=== PATIENT | female | born 1995 | race Caucasian/White ===

== ENCOUNTER 2016-09-17 14:39 | Inpatient (IN) | payer BC ==
[2016-09-17] MEDS ORDERED: NS 1,000 ML IV ONE ×3 (15:25→18:10)
[2016-09-17 15:44] LABS: ANION GAP 12 mEq/L (8-16); CALCIUM 8.7 mg/dL (8.5-10.4); CARBON DIOXIDE 22 mEq/l (22-31); CHLORIDE 102 mEq/L (97-110); CREATININE 2.2 mg/dL (0.6-1.0); GLOMERULAR FILTRATION RATE 28; GLUCOSE 129 mg/dL (70-100); POTASSIUM 3.8 mEq/L (3.5-5.2); SODIUM 136 mEq/L (134-144)
[2016-09-17 16:01] LABS: BHCG-QUALITATIVE NEGATIVE; MONO TEST NEGATIVE (NEGATIVE)
[2016-09-17 16:05] LABS: ALBUMIN 3.5 g/dL (3.5-5.0); BILIRUBIN-CONJUGATED 0.5 mg/dL (0.0-0.5); BILIRUBIN-UNCONJUGATED 0.5 mg/dL (0.0-1.1); TOTAL PROTEIN 6.6 g/dL (6.3-8.2)
[2016-09-17 16:07] LABS: ADD MORPH? NO; FRAGMENT RBC FLAG 0 (0-99); HEMATOCRIT 44.5 % (38.0-47.0); LIPEMIA HEMOLYSIS FLAG 80 (0-99); MEAN CELL HEMOGLOBIN CONCENTR. 33.7 g/dL (32.4-36.7); MEAN PLATELET VOLUME 10.2 fL (8.7-11.7); PLATELET CLUMPS FLAG 10 (0-99); PLATELET COUNT 93 10^3/uL (150-400); RED CELL DISTRIBUTION WIDTH 12.3 % (11.5-15.2)
[2016-09-17 16:12] LABS: ADD DIFF? YES; ADD SCAN? NO; ATYPICAL LYMPHOCYTE FLAG 100 (0-99); LEFT SHIFT FLG 300 (0-99)
--- NOTE | 2016-09-17 16:27 | EDPHY ---
H & P Stated Complaint: Intermittent fever,generalized malaise x 4 days. Sent from [facility] for eval Source: Patient Exam Limitations: No limitations - Personal History LMP (Females 10-55): 1-7 Days Ago Current Tetanus Diphtheria and Acellular Pertussis (TDAP): Yes - Medical/Surgical History Other PMH: healthy HPI/ROS: CHIEF COMPLAINT: Flu-like symptoms HISTORY OF PRESENT ILLNESS: Patient complains of several days of fever and chills. This was followed with subsequent headache, malaise, myalgias and fatigue. This was sudden onset. Constant duration. [id number] symptoms. No alleviating factors until receiving IV fluid here prior to my examination. She has no chest pain. The headache that she has had has been intermittent. It has been mild. It is currently not present during examination. She has never had any neck pain or stiffness. She has never had any chest pain. Does have occasional cough. Some nausea but no vomiting. No changes in her bowel movements. No urinary complaints. No other associated complaints or modifying factors. REVIEW OF SYSTEMS: Ten systems reviewed and are negative unless otherwise noted in the HPI PERTINENT MEDICAL HISTORY: None EXAMINATION General Appearance: Alert, no distress Head: normocephalic, atraumatic Eyes: Pupils equal and round, no conjunctival pallor or injection ENT, Mouth: Mucous membranes dry. Uvula midline. No erythema or edema. Airway widely patent. Neck: Normal inspection, supple, non-tender painless range of motion all planes. No rigidity or meningismus. Respiratory: Lungs are clear to auscultation. No wheezing, rhonchi or crackles. Cardiovascular: Regular rate and rhythm. No murmur. Pulses intact distally. Gastrointestinal: Abdomen is soft and nontender. No hepatosplenomegaly. Bowel sounds present in all quadrants Back: non-tender, no bony abnormalities Neurological: GCS 15. A&O, nonfocal, normal gait. Strength symmetric. Skin: Warm and dry, no rash. No petechiae or purpura. Extremities: Nontender, no pedal edema Psychiatric: Mood and affect normal DIFFERENTIAL DIAGNOSES: Including but not limited to acute dehydration, influenza, infectious mononucleosis, cytomegalovirus, viral illness, acute kidney injury, meningitis MDM: 4:20 p.m. Flu-like symptoms with creatinine of 2.2, but her BUN to creatinine ratio was only 7.7. Her headache is not present. She has not had any neck pain or stiffness, nor does she have any meningismus on examination. Chemistry is the only laboratory this returned thus far. Will continue IV fluid resuscitation and monitor the patient. 5:00 p.m. Patient does have leukocytosis with 11% bandemia. I have ordered blood cultures and lactic acid after discussing with Dr. Ford. Also ordered a chest x-ray to rule out pneumonia. She is receiving continue IV fluid resuscitation, we will recheck her creatinine following this. 5:30 p.m. I have re-evaluated the patient. Vital signs remain mildly hypotensive without tachycardia at this time. Blood cultures have been drawn and lactic acid is pending. She is currently getting her chest x-ray at this time 5:45 p.m. Notified by radiologist Dr. Church that there is a right middle lobe pneumonia on chest x-ray. This with her initial tachycardia, lactic acid of 3.0, leukocytosis with bandemia classifies her as severe sepsis but not septic shock at this time. We will start treatment with Rocephin and Zithromax, repeat the lactic acid, continue IV fluid resuscitation and proceed with admission to the hospital. Urinalysis is pending at this time. 5:50 p.m. I have discussed the case with hospitalist Dr. Teena Phillip. She will admit the patient. She was notified that the patient does meet criteria for severe sepsis. She is notified that we are rechecking lactic acid following the current 3rd L of IV fluid. She is comfortable with our plan. SUPERVISION: Patient was evaluated in conjunction with the supervising physician. Please see their note for details. (Robson Vasquez) Constitutional: Initial Vital Signs Temperature (C) 97.7 F 09/17/16 14:45 Heart Rate 122 H 09/17/16 14:45 Respiratory Rate 18 09/17/16 14:45 Blood Pressure 71/38 L 09/17/16 14:45 O2 Sat (%) 97 09/17/16 14:45 O2 Delivery Mode Nasal Cannula O2 (L/minute) 2 Allergies/Adverse Reactions: Penicillins Allergy (Mild, Verified 09/17/16 14:50) Rash Home Medications: Medication Instructions Recorded Norethindrone 0.35 mg PO DAILY 09/17/16 Medical Decision Making ED Course/Re-evaluation: The patient was evaluated and managed by the physician's corporate law assistant. My cosignature indicates that I reviewed the chart and I agree with the findings and plan of care as documented. I am the secondary supervising physician. I personally went and evaluated the patient. I discussed the plan case with SINDI. On recheck the patient stated that she was feeling better. Her vital signs improved. Patient's repeat creatinine improved. 1835: I rechecked the patient. She was stable. (Emily Ford) - Data Points Laboratory Results: Laboratory Results 09/18/16 06:45 09/18/16 04:15 09/18/16 04:15 HIV 1&2 Antibody NEGATIVE (NEGATIVE) Microbiology Results: MICROBIOLOGY 09/17/16 18:03 Blood Blood Culture - Preliminary 09/17/16 17:19 Blood Blood Culture - Preliminary 09/17/16 17:50 Urine,Clean Catch Urine Culture - Preliminary Staphylococcus Aureus Two [place] Types Medications Given: Discontinued Medications Calcium Carbonate (Oyster Shell Calcium) 500 mg PO BID SUKUMAR Stop: 09/19/16 00:05 Last Admin: 09/18/16 21:21 Dose: 500 mg Hydrocortisone (Solucortef) 100 mg IVP ONCE ONE Stop: 09/18/16 05:30 Last Admin: 09/18/16 06:29 Dose: 100 mg Sodium Chloride (Ns) 1,000 mls @ 0 mls/hr IV EDNOW ONE PRN Reason: Wide Open Stop: 09/17/16 15:26 Last Admin: 09/17/16 15:27 Dose: 1,000 mls Sodium Chloride (Ns) 1,000 mls @ 0 mls/hr IV ONCE ONE PRN Reason: Wide Open Stop: 09/17/16 15:50 Last Admin: 09/17/16 15:55 Dose: 1,000 mls Azithromycin 500 mg/ Dextrose 255 mls @ 255 mls/hr IV EDNOW ONE PRN Reason: Protocol Stop: 09/17/16 18:41 Last Admin: 09/17/16 18:36 Dose: 255 mls Ceftriaxone Sodium/Dextrose (Rocephin 1 Gm (Premix)) 50 mls @ 100 mls/hr IV EDNOW ONE PRN Reason: Protocol Stop: 09/17/16 18:11 Last Admin: 09/17/16 18:00 Dose: 50 mls Sodium Chloride (Ns) 1,000 mls @ 0 mls/hr IV ONCE ONE PRN Reason: Wide Open Stop: 09/17/16 18:11 Last Admin: 09/17/16 17:00 Dose: 1,000 mls Sodium Chloride (Ns) 1,000 mls @ 100 mls/hr IV CONT SUKUMAR Stop: 03/16/17 18:59 Last Admin: 09/18/16 07:23 Dose: 1,000 mls Sodium Chloride (Ns) 1,000 mls @ 0 mls/hr IV ONCE ONE PRN Reason: Wide Open Stop: 09/17/16 23:31 Last Admin: 09/17/16 23:59 Dose: 1,000 mls Sodium Chloride (Ns) 1,000 mls @ 3,000 mls/hr IV ONCE ONE Stop: 09/18/16 00:59 Last Admin: 09/18/16 01:27 Dose: 1,000 mls Dopamine HCl/Dextrose (Dopamine 1600 Mcg/Ml (Premix)) 250 mls @ 9.781 mls/hr IV CONT SUKUMAR PRN Reason: 5 MCG/KG/MIN Stop: 03/17/17 01:59 Last Admin: 09/18/16 03:00 Dose: 250 mls Sodium Chloride (Ns) 1,000 mls @ 3,000 mls/hr IV ONCE ONE Stop: 09/18/16 02:46 Last Admin: 09/18/16 02:44 Dose: 1,000 mls Albumin Human (Alburx 5) 500 mls @ 0 mls/hr IV ONCE ONE PRN Reason: As Directed Stop: 09/18/16 04:28 Last Admin: 09/18/16 04:43 Dose: 500 mls Phenylephrine HCl 50 mg/ (Dextrose) 250 mls @ 0 mls/hr IV CONT SUKUMAR; Titrate PRN Reason: Protocol Stop: 03/17/17 04:29 Last Admin: 09/18/16 05:15 Dose: 250 mls Calcium Gluconate (Calcium Gluconate 1 Gm (Premix)) 50 mls @ 100 mls/hr IV ONCE ONE Stop: 09/18/16 09:46 Last Admin: 09/18/16 13:38 Dose: Not Given Magnesium Sulfate (Magnesium Sulf 2 Gm (Premix)) 50 mls @ 50 mls/hr IV ONCE ONE Stop: 09/18/16 10:16 Last Admin: 09/18/16 12:42 Dose: 50 mls Albumin Human (Alburx 5) 500 mls @ 0 mls/hr IV ONCE ONE PRN Reason: As Directed Stop: 09/18/16 10:20 Last Admin: 09/18/16 14:30 Dose: 500 mls Magnesium Sulfate/Dextrose (Magnesium Sulf 1 Gm (Premix)) 100 mls @ 100 mls/hr IV ONCE ONE Stop: 09/19/16 09:20 Last Admin: 09/19/16 09:10 Dose: 100 mls Magnesium Oxide (Magnesium Oxide) 400 mg PO ONCE ONE Stop: 09/18/16 13:43 Last Admin: 09/18/16 14:30 Dose: 400 mg Miscellaneous Medication (Norethindrone [Norethindrone]) 0.35 mg PO DAILY SUKUMAR Stop: 03/17/17 08:59 Last Admin: 09/18/16 10:54 Dose: Not Given Potassium Chloride (Klor-Con) 10 - 40 meq PO ONCE ONE PRN Reason: Protocol Stop: 09/18/16 08:02 Last Admin: 09/18/16 10:26 Dose: 10 meq Potassium Chloride (Klor-Con) 10 - 40 meq PO ONCE ONE PRN Reason: Protocol Stop: 09/18/16 23:27 Last Admin: 09/19/16 00:29 Dose: 20 meq Potassium Chloride (Klor-Con) 10 - 40 meq PO ONCE ONE PRN Reason: Protocol Stop: 09/19/16 08:21 Last Admin: 09/19/16 09:12 Dose: 20 meq Departure - Departure Dis[facility]: [facility] In[facility] Acute Clinical Impression: Severe sepsis, Community acquired pneumonia, Lactic acidosis, Thrombocytopenia Urinary tract infection Qualifiers: Urinary tract infection type: acute cystitis Hematuria presence: with hematuria Qualified Code(s): N30.01 - Acute cystitis with hematuria Leukocytosis Qualifiers: Leukocytosis type: bandemia Qualified Code(s): D72.825 - Bandemia Condition: Good
[2016-09-17 16:38] LABS: TOXIC VACUOLIZATION PRESENT
[2016-09-17 16:39] LABS: PLATELET ESTIMATE DECREASED (ADEQ)
[2016-09-17] MEDS ORDERED: AZITHROMYCIN IV 500 MG in D5W 250 ML IV ONE (17:42)
[2016-09-17 18:05] LABS: COLOR YELLOW; LEUKOCYTE ESTERASE,URINE 3+ (NEGATIVE); NITRITE,URINE NEGATIVE (NEGATIVE)
[2016-09-17 18:17] LABS: BACTERIA TRACE /hpf (NONE SEEN); MUCUS TRACE /lpf (NONE-1+); WBC,URINE 15-25 /hpf (0-3)
[2016-09-17 18:30] LABS: LACGHOST ORDER
[2016-09-17] MEDS ORDERED: ONDANSETRON 4 MG/2 ML VIAL ONE (18:42)
[2016-09-17] MEDS: ONDANSETRON 4 MG/2 ML VIAL IVP PRN (19:06)
--- NOTE | 2016-09-17 19:43 | GHP ---
[f rep st] HISTORY AND PHYSICAL DATE OF ADMISSION: 09/17/2016 CHIEF COMPLAINT: Fever and dizziness. HISTORY OF PRESENT ILLNESS: The patient is a 21-year-old female, who has been sick for the last 4 d ays. It started with chills and all-over body aches with headache. She has had fever and chills. Last night, her symptoms became very severe. She tried to get up this morning and she was extremely dizzy. She says there has been no cough or any respiratory symptoms. She feels like the lymph nod es are swollen in her neck, but she denies any pharyngitis or pain with swallowing. She has had joe e nausea and vomiting. She denies any sick contacts. No recent exotic travel. Her last travel was studying abroad in [place], returning home last April. PAST MEDICAL HISTORY: Negative. MEDICATIONS: None. ALLERGIES: PENICILLIN. SOCIAL HISTORY: No smoking. No drugs. She binge drinks on weekends. She is a [employer] student. She li ves in an apartment with roommates. Her parents live in [place], [place]. REVIEW OF SYSTEMS: Complete review of systems obtained. Review of systems is negative regarding co nstitutional, HEENT, GI, pulmonary, vascular, , hematology, skin, musculoskeletal, endocrine and p sych except for positives and negatives as in HPI. FAMILY HISTORY: Reviewed. PHYSICAL EXAMINATION: VITAL SIGNS: Temperature is 36.6, pulse 122. Blood pressure on presentation 71/38. Status post resuscitation in the emergency room is 105/51. Saturating % on room air. EYES: Normal conjunctivae. Pupils react to light. ENT: Normal ears and nose. Hearing inta ct. Normal lips and teeth. Oropharynx moist. NECK: Trachea midline. No thyromegaly. CHEST: No rmal effort. LUNGS: Clear to auscultation bilaterally. CARDIOVASCULAR: Regular rate and rhythm. No murmur. No lower extremity edema. ABDOMEN: Soft, nontender. No hepatosplenomegaly. SKIN: W arm, dry, intact. No rash. MUSCULOSKELETAL: No cyanosis or clubbing. Strength 5/5 upper and lowe r extremities. NEUROLOGIC: Cranial nerves intact. Normal sensation to light touch. PSYCH: Alert and oriented x3. Normal affect. Normal judgment. Normal memory. LABORATORY DATA: White count 14.22 with 78% bands, hematocrit 44.5, platelets 93. Sodium 136, pota ssium 3.8, chloride 102, bicarb 22, BUN 17, creatinine 2.2, glucose 129. Lactate is 3.0. AST is 64 . Influenza negative. Respiratory PCR negative. Beta HCG negative. Chest x-ray shows right middl e lobe pneumonia. EMERGENCY ROOM COURSE: This case was discussed with Robson Vasquez, emergency room PA. They have adm inistered ceftriaxone and azithromycin. Her blood pressure and lactate have improved after IV fluid in the ER. ASSESSMENT/PLAN: 1. Right middle lobe pneumonia. There definitely seems to be a viral element to this but perhaps s he has a secondary bacterial infection. We will continue ceftriaxone and azithromycin. Could also consider treatment for aspiration pneumonia given her history of binge drinking behavior. We will c heck an HIV. 2. Severe sepsis. She will be started on the sepsis protocol. We will continue IV fluid and check serial lactates. 3. Acute renal failure. This is due to sepsis and hypotension. We will recheck status post resusc itation. 4. Hypotension. This has resolved with IV fluid. She looks clinically nontoxic. I do not anticip ate she will need pressors. 5. Thrombocytopenia. I suspect this is due to sepsis. This will be followed. CODE STATUS: Full. ADMISSION STATUS: We will admit to observation. Depending on progress, she may be able go home oralia orrow if she has a rapid turnaround. DVT PROPHYLAXIS: She is low risk. We will hold off on pharmacologic prophylaxis at this time. /[id number]/MODL
[2016-09-17] MEDS: NS 1,000 ML IV SCH (19:53)
[2016-09-17] MEDS: ACETAMINOPHEN 325 MG TAB PO PRN (21:45)
[2016-09-17] MEDS: oxyCODONE IR 5 MG TAB PO PRN (22:43)
[2016-09-17] MEDS ORDERED: NS BOLUS 1000 ML (Wide open) IV ONE (23:30)
[2016-09-18] MEDS ORDERED: NS 1,000 ML IV ONE ×2 (00:40→02:27)
[2016-09-18] MEDS ORDERED: IOPAMIDOL (ISOVUE 370) 100 ML BTL IV ONE ×2 (03:24)
[2016-09-18] MEDS: ONDANSETRON 4 MG/2 ML VIAL IVP PRN ×2 (04:00→07:21)
[2016-09-18 04:27] LABS: ADD MORPH? NO; ADD SCAN? YES; FRAGMENT RBC FLAG 0 (0-99); HEMATOCRIT 38.5 % (38.0-47.0); LIPEMIA HEMOLYSIS FLAG 90 (0-99); MEAN CELL HEMOGLOBIN 30.7 pg (27.9-34.1); MEAN CELL HEMOGLOBIN CONCENTR. 33.8 g/dL (32.4-36.7); MEAN CELL VOLUME 90.8 fL (81.5-99.8); MEAN PLATELET VOLUME 10.6 fL (8.7-11.7); PLATELET CLUMPS FLAG 10 (0-99); PLATELET COUNT 70 10^3/uL (150-400); RED BLOOD CELL COUNT 4.24 10^6/uL (4.18-5.33); RED CELL DISTRIBUTION WIDTH 12.7 % (11.5-15.2)
[2016-09-18] MEDS ORDERED: ALBUMIN 5% 500 ML IV ONE ×2 (04:27→10:19)
[2016-09-18] MEDS ORDERED: PHENYLEPHRINE HCL 50 MG in D5W 250 ML IV SCH (04:30)
[2016-09-18 04:36] LABS: ATYPICAL LYMPHOCYTE FLAG 170 (0-99); LEFT SHIFT FLG 250 (0-99)
[2016-09-18 04:44] LABS: ALANINE AMINOTRANSFERASE 47 IU/L (9-52); ALBUMIN 2.5 g/dL (3.5-5.0); ALKALINE PHOSPHATASE 56 IU/L (38-126); ANION GAP 6 mEq/L (8-16); ASPARTATE AMINOTRANSFERASE 47 IU/L (14-46); BILIRUBIN-CONJUGATED 0.7 mg/dL (0.0-0.5); BILIRUBIN-UNCONJUGATED 0.3 mg/dL (0.0-1.1); CALCIUM 6.3 mg/dL (8.5-10.4); CARBON DIOXIDE 20 mEq/l (22-31); CHLORIDE 111 mEq/L (97-110); CREATININE 1.1 mg/dL (0.6-1.0); GLOMERULAR FILTRATION RATE > 60; GLUCOSE 91 mg/dL (70-100); POTASSIUM 3.8 mEq/L (3.5-5.2); SODIUM 137 mEq/L (134-144); TOTAL PROTEIN 4.7 g/dL (6.3-8.2)
[2016-09-18 04:55] LABS: TROPONIN I 0.021 ng/mL (0-0.034)
--- NOTE | 2016-09-18 05:03 | HOSPPROG ---
Hospitalist Progress Note Assessment/Plan: CROSS COVER EVENT NOTE RN paged at approximately 23:30 regarding abnormal VS for the patient: BP 81/34 , HR 95, with patient still mentating well, largely without complaint. At this time, 1L NS was ordered and given. Prior to this, patient had received about 4 L NS boluses, her admission lactic acid had downtrended from 3 to 2. Patient's BP did not respond to the 1L NS bolus, actually decreased to the 70/30 range, so another 1L bolus was given. Over the following hour, BP continued to decrease , now 60/30s, so STAT was called by RN. On exam during stat team: Gen: NAD, mentating CV: tachycardic Resp: cta b/l, no rhonchi Abd: soft, nontender Ext; peripheral mottling, faint/weak radial pulses bilaterally; no edema Neuro: mentating at baseline; no focal deficits Labs: LA 3->2->1.4 D-dimer: 5 CT angio was then ordered to rule out acute pulmonary embolism. CT chest did not reveal PE and was also negative for obvious pneumonia/infiltrate. Impress/plan: Patient is a 21 year old female with no significant pmh who presented to the ED with complaint of 4 days of generalized malaise, upper respiratory symptoms. ED evaluation was concerning for sepsis due to RML pneumonia vs UTI. She was initiated on IVF resuscitation, IV antibiotics. However, over the course of the evening, patient remains hypotensive, concerning for septic shock despite adequate IVF resuscitation (7L total). CT chest has ruled out PE, but also does not reveal evidence of pneumonia. Source now appears to be urinary. - transfer to ICU - initiate peripheral dopamine, if MAP does not improve place central access and start levophed - trend lactic acid - check Renal/bladder US to r/o obstructive pyelonephritis - f/u blood and urine culture - check TTE to rule out cardiac component Laura Roland DO Objective: Vital Signs Temp Pulse Resp BP Pulse Ox 37.1 C 93 17 83/37 L 97 09/18/16 02:45 09/18/16 03:00 09/18/16 03:00 09/18/16 03:00 09/18/16 03:00 09/16/16 09/17/16 09/18/16 05:59 05:59 05:59 Intake Total 3300 Balance 3300 ICD10 Worksheet Patient Problems: Problems Problem Status Onset Severe sepsis Acute Community acquired pneumonia Acute Lactic acidosis Acute Thrombocytopenia Acute Urinary tract infection Acute Leukocytosis Acute
[2016-09-18] MEDS ORDERED: ALTEPLASE 2 MG VIAL IVP PRN (05:04)
[2016-09-18] MEDS ORDERED: PROTOCOL POTASSIUM 1 DOSE MISC PRN (05:09)
[2016-09-18] MEDS ORDERED: PROTOCOL MAGNESIUM 1 DOSE IV PRN (05:09)
[2016-09-18] MEDS ORDERED: PROTOCOL CALCIUM 1 DOSE IV PRN (05:09)
[2016-09-18 05:24] LABS: ADD DIFF? YES; SCAN POSITIVE
[2016-09-18 05:26] LABS: INR 2.3 (0.83-1.16); PROTIME(PATIENT) 25.5 SEC (12.0-15.0)
[2016-09-18 05:27] LABS: APTT 47.2 SEC (23.0-38.0)
[2016-09-18 05:29] LABS: ECHINOCYTES 1+; PLATELET ESTIMATE DECREASED (ADEQ); TOXIC GRANULATION PRESENT; TOXIC VACUOLIZATION PRESENT
[2016-09-18] MEDS ORDERED: HYDROCORTISONE 100 MG/2 ML VIAL IVP ONE (05:29)
[2016-09-18 06:57] LABS: PLATELET COUNT 73 10^3/uL (150-400)
[2016-09-18 07:05] LABS: INR 1.99 (0.83-1.16); PROTIME(PATIENT) 22.7 SEC (12.0-15.0)
[2016-09-18 07:06] LABS: APTT 39.5 SEC (23.0-38.0)
[2016-09-18] MEDS: NS 1,000 ML IV SCH (07:23)
[2016-09-18 07:26] LABS: FIBRINOGEN 347 mg/dL (214-456)
[2016-09-18] MEDS ORDERED: POTASSIUM CL 10 MEQ TAB PO ONE ×2 (08:01→23:26)
[2016-09-18 08:07] LABS: IONIZED CALCIUM 0.96 MMOL/L (1.12-1.30)
[2016-09-18] MEDS ORDERED: CALCIUM GLUCONATE 50 ML IV ONE (09:17)
[2016-09-18] MEDS ORDERED: MAGNESIUM SULF 2 GM/WATER 50 ML IV ONE (09:17)
--- NOTE | 2016-09-18 10:22 | HOSPPROG ---
Hospitalist Progress Note Assessment/Plan: DIAGNOSES: # ACUTE SEPTIC SHOCK WITH ORGAN FAILURE # URINARY TRACT INFECTION # ACUTE KIDNEY INJURY # PROBABLE DIC DUE TO ABOVE Overall she Appears to be responding well, and sepsis improving though she remains on pressor therapy. I am optimistic she will continue to improve fairly quickly but she will need ongoing intensive care unit care. PLANS: continue fluid resuscitation and antibiotics Follow cultures closely Follow hemodynamics closely, continue resuscitation as indicated, hopefully can continue to wean pressors fairly soon I have interviewed and examined the patient together with Dr. Silviano Spring and we reviewed her case in detail Patient also seen on multidisciplinary rounds today SUBJECTIVE: no flank, abdominal, or bladder discomfort No cough shortness of breath chest discomfort or other respiratory symptoms No focal pain or discomfort OBJECTIVE Vitals reviewed: blood pressures have been good range though she started still this morning on high dose norepinephrine and dopamine. We have now been able to turn off the dopamine and her pressures have remained in good range Core Analysis Operator, my review: sinus rhythm Exam: alert oriented skin warm dry color ok, no bleeding or bruising resps not labored lungs clear BSs heart regular abd soft nondistended nontender, bowel sounds present, no flank tenderness limbs warm, no edema iv site ok Laboratory data: Lactic acidosis resolved Renal function improved creatinine 1.1, still not likely at her baseline Still showing significant abnormalities suggesting DIC Culture data: No growth in cultures so far Respiratory viral testing reveals no organism CT scan of chest, my personal review and interpretation of images: There is no PE, and there are no pulmonary infiltrates or pleural disease. However it must be mentioned that the apices and bases of the lungs are not visualized on these images Objective: Vital Signs Temp Pulse Resp BP Pulse Ox 37.1 C 60 18 117/69 96 09/18/16 02:45 09/18/16 09:00 09/18/16 09:00 09/18/16 09:00 09/18/16 09:00 09/17/16 09/18/16 09/19/16 06:59 06:59 06:59 Output Total 300 Balance -300 PT 22.7 SEC (12.0-15.0) H 09/18/16 06:45 INR 1.99 (0.83-1.16) H 09/18/16 06:45 - Time Spent With Patient Time Spent with Patient: greater than 35 minutes Time Spent with Patient: Greater than 35 minutes spent on this patients care, greater than 50% of time spent counseling, educating, and coordinating care regarding the above mentioned plan. ICD10 Worksheet Patient Problems: Problems Problem Status Onset Community acquired pneumonia Acute Lactic acidosis Acute Leukocytosis Acute Severe sepsis Acute Thrombocytopenia Acute Urinary tract infection Acute
[2016-09-18] MEDS: NORETHINDRONE 0.35 MG PO SCH ×2 (10:54→21:27)
--- NOTE | 2016-09-18 11:57 | ECHO ---
[id number] + + [address] : : [place] [address] : : [phone] + + Adult Echocardiographic Report + + :Name: LEONEL STEPHEN Lu CStudy Date: 09/18/2016 07:54 AM : : Hospital Admission Number: [id number] : :: 1995 Gender: Female Height: 64 in : :Age: 21 yrs Race: WH Weight: 115 lb : :Reason For Study: persistent hypotension of unclear : :etiology BSA: 1.5 meters2: :History: No previous : + + MMode/2D Measurements \T\ Calculations IVSd: 0.96 cm LVIDd: 3.9 cm FS: 39.4 % LVOT diam: 1.9 cm LVPWd: 0.86 cm LVIDs: 2.4 cm EDV(Teich): LVOT area: 66.2 ml ESV(Teich): 2.9 cm2 19.5 ml EF(Teich): 70.5 % LVLd ap4: 8.4 cm SV(MOD-sp4): EDV(MOD-sp4): 59.0 ml 90.0 ml LVLs ap4: 6.7 cm ESV(MOD-sp4): 31.0 ml EF(MOD-sp4): 65.6 % Normal Measurement Values: + + :LVIDd (3.5-5.7cm) IVSd (0.6-1.1cm) LVPWd (0.6-1.1cm) Aortic Root (2.0-3.7cm)Left Atrium (1.5-4.0cm): :LV Vol(d) (76-115ml) LV Vol(s) (29-48ml) Ejec Fraction (50-65%)PV Jarad (0.6- 1.2m/s) TV Jarad (0.4-1.0m/s) : :MV E Jarad (0.8-1.0m/s)MV A Jarad (0.3-1.0m/s)LVOT Jarad (0.7-1.2m/s) Asc Ao Jarad ( 0.9-1.8m/s) : + + Doppler Measurements \T\ Calculations MV E max jarad: MV V2 mean: Ao mean PG: LV V1 max: 114.0 cm/sec 65.4 cm/sec 5.0 mmHg 111.6 cm/sec MV A max jarad: MV mean PG: Ao V2 mean: LV V1 max P.9 cm/sec 2.3 mmHg 105.9 cm/sec 5.0 mmHg MV E/A: 2.4 MV V2 VTI: Ao V2 VTI: 31.7 cm LV V1 mean PG: MV dec time: 30.0 cm QUOC(I,D): 2.0 cm2 2.8 mmHg 0.18 sec MVA(VTI): 2.1 cm2 LV V1 mean: 78.7 cm/sec LV V1 VTI: 21.6 cm SV(LVOT): 62.5 ml PA V2 max: PI end-d jarad: TR max jarad: 90.9 cm/sec 133.0 cm/sec 271.5 cm/sec PA max PG: TR max P.3 mmHg 29.5 mmHg RAP systole: 10.0 mmHg RVSP(TR): 39.5 mmHg Left Ventricle The left ventricle is normal in size and function. There is normal left ventricular wall thickness. Ejection Fraction = 65-70%. No regional wall motion abnormalities noted. Right Ventricle RV is mildly dilated with mildly reduced systolic function. Atria The left atrial size is normal. Right atrial size is normal. Mitral Valve The mitral valve is normal in structure and function. There is no mitral valve stenosis. There is mild mitral regurgitation. Tricuspid Valve The tricuspid valve is normal in structure and function. There is no tricuspid stenosis. There is mild tricuspid regurgitation. Right ventricular systolic pressure is normal. Aortic Valve The aortic valve is normal in structure and function. There is no aortic stenosis. There is no aortic insufficiency. Pulmonic Valve The pulmonic valve is normal in structure and function. There is no pulmonic valvular stenosis. Mild pulmonic valvular regurgitation. Great Vessels The aortic root is normal size. Pericardium/Pleural There is a fat pad seen. Conclusion A complete two-dimensional transthoracic echocardiogram was performed (2D, M-mode, Doppler and color flow Doppler). The left ventricle is normal in size and function. Ejection Fraction = 65-70%. RV is mildly dilated with mildly reduced systolic function There is mild mitral regurgitation. There is mild tricuspid regurgitation. Right ventricular systolic pressure is normal. The aortic valve is normal in structure and function. Mild pulmonic valvular regurgitation. No prior echo Results discussed with Dr. Draper Final Reading Physician: Dr Harleen Castro electronically signed on 09/18/2016 11:55 AM Ordering Physician: Laura Roland Performed By: Miguelina Christensen
[2016-09-18] MEDS: AZITHROMYCIN IV 500 MG in D5W 250 ML IV SCH (12:01)
[2016-09-18] MEDS ORDERED: MAGNESIUM SULF 2 GM/WATER 50 ML BAG IV ONE (12:40)
[2016-09-18] MEDS ORDERED: MAGNESIUM OXIDE 400 MG TAB PO ONE (13:42)
[2016-09-18] MEDS ORDERED: ALBUMIN 5% 500 ML BOTTLE IV ONE (14:27)
[2016-09-18] MEDS: CALCIUM CARBONATE 500 MG TAB PO SCH ×2 (14:30→21:21)
--- NOTE | 2016-09-18 14:35 | GCON ---
[f rep st] CONSULTATION PULMONARY CRITICAL CARE CONSULTATION. DATE OF CONSULTATION: 09/18/2016 REASON FOR CONSULTATION: Urosepsis. HISTORY: The patient is a very pleasant 21-year-old who was admitted yesterday in the afternoon. S he had increasing weakness associated with shaking chills and fever. Symptoms started 3-4 days prio r to her admission and progressed to the point where she was lightheaded when trying to get up. She has had some associated nausea and poor appetite. She did have some urinary tract symptoms but did not feel that she had a urinary tract infection. She was admitted to the floor and placed on antib iotics for a possible pneumonia as initial chest x-ray was felt to possibly show a vague right middl e lobe infiltrate. However, she became hypotensive. A CT angiogram of the chest was performed whic h did not show any evidence of pneumonia. No pulmonary embolic disease was seen. There was no evid ence of a pericardial effusion or other abnormalities on chest CT. Urinalysis was done following ad mission, which showed significant white blood cells, bacteria, and a 3+ leukocyte esterase. Urine c ulture was obtained but was done after the patient had been started on antibiotics. Respiratory vir al panel has been negative. Blood cultures are pending. Secondary to her hypotension, she was transferred to the intensive care unit. She was placed on dop amine peripherally, as well as phenylephrine. She received significant fluids, approximately 6 L. She was also given Plasmanate. With these therapies, blood pressure has improved. She states that she feels significantly better. White blood cell count was elevated on admission at 14. Lactate was 3 on admission and has come connie n to approximately 1.5. Creatinine was 2.2 initially but has come down to 1.1 with fluid therapy. PT and PTT were elevated when checked, consistent with mild DIC. PAST MEDICAL HISTORY: Unremarkable. She is a rolf at . She has no underlying medical problems . MEDICATIONS: She takes no medications on a regular basis. ALLERGIES: Penicillin. SOCIAL HISTORY: She is at , lives with roommates. Significant alcohol is denied. She drinks jaimee annie on the weekends at parties. Tobacco is negative. She is from [facility]. REVIEW OF SYSTEMS: A 10-point review of systems is negative. There is no history of heart problems , nausea or vomiting, asthma, thromboembolic disease, etc. FAMILY HISTORY: Noncontributory. PHYSICAL EXAMINATION: GENERAL: Reveals a young woman who is resting comfortably in bed. She is in no distress. VITAL SIGNS: Blood pressure is approximately 115/65, heart rate 70 with sinus rhythm on the monitor, respiratory rate is 20. On 2 L, saturations are 100%. She is afebrile with a maxi mum temperature of 37.1 since admission. HEENT: Unremarkable for lymphadenopathy or thyromegaly. There is no pharyngitis, no tracheal tenderness, no stridor, no nasal congestion. CHEST: Reveals a few nonspecific rales with inspiration at the bases. There are no consolidative changes. HEART: Regular in rate and rhythm. There are no significant murmurs, no gallops. ABDOMEN: Soft, nontende r. Bowel sounds are present. There is no CVA tenderness. : No Hinojosa catheter is in place. EXT REMITIES: Remarkable for trace plus edema. NEUROLOGIC: Examination is within normal limits. DATA BASE: Radiologic studies are as outlined above. She did have an abdominal pelvic ultrasound, which was negative. The kidneys appear normal. There was no hydronephrosis. LABORATORY DATA: Currently, white blood cell count is 11,000, hematocrit 38, platelets 73,000. PT is 22.7 with a PTT of 39, both slightly decreased over approximately 5 hours. Lactate is 1.5. Sodi um is 137, potassium 3.8, CO2 20, anion gap 6, BUN 15 with a creatinine of 1.1. Ionized calcium is low at 0.95, magnesium 1.2, also low. Bilirubin is normal, AST 47, mildly elevated. ALT is normal at 47. Troponins are negative, albumin 2.5, beta HCG negative. Influenza A and B is negative. Mon ospot test negative. Urine culture is pending. ASSESSMENT: 1. Urosepsis with hypotension requiring significant fluids, colloid, and pressor therapy. The latt er is being weaned. She is off dopamine with reduced doses of phenylephrine. She is on ceftriaxone and azithromycin, both adequate to cover her urinary tract infection. She did receive hydrocortiso ne. Further hydrocortisone would not appear to be needed. Intravenous fluids will be continued for now. 2. Urinary tract infection. Please see the comments above. 3. Severe sepsis with hypotension, probable disseminated intravascular coagulation but relatively n ormal lactates. She has responded nicely to fluids and pressors, the latter being weaned. 4. Hypocalcemia and hypomagnesemia. Replacement will be given. 5. Elevated PT, PTT, and D-dimer with low platelets, consistent with low-grade disseminated intrava scular coagulation. She has no active bleeding or clotting. Parameters will be followed. PLAN AND RECOMMENDATIONS: The patient will be kept in the intensive care unit but can be moved to a step-down status and possibly to med/surge later if she continues to do well. Intravenous fluids a nd antibiotics will be continued. Laboratory will be followed. Urine cultures will be awaited. Further plans and recommendations will be made based on her progress over the next 12-24 hours. /[id number]/MODL
[2016-09-18] MEDS: ACETAMINOPHEN 325 MG TAB PO PRN (15:18)
[2016-09-18] MEDS: oxyCODONE IR 5 MG TAB PO PRN (15:35)
[2016-09-18 19:26] LABS: POTASSIUM 3.5 mEq/L (3.5-5.2)
[2016-09-19] MEDS: ACETAMINOPHEN 325 MG TAB PO PRN (00:36)
[2016-09-19] MEDS: ALBUMIN 25% 100 ML IV SCH ×4 (01:53→20:18)
[2016-09-19] MEDS: IPRATROPIUM/ALBUTEROL 3 ML DEYVIAL IH SCH ×5 (01:56→23:53)
[2016-09-19] MEDS: methylPREDNISolone SOD SUCC 125 MG/2 ML VIAL IVP SCH ×2 (02:48→09:10)
[2016-09-19 05:29] LABS: IONIZED CALCIUM 1.01 MMOL/L (1.12-1.30)
[2016-09-19 05:34] LABS: % IMMATURE GRANULYOCYTES 0.5 % (0.0-1.1); ABSOLUTE IMMATURE GRANULOCYTES 0.05 10^3/uL (0.00-0.10); ADD DIFF? NO; ADD MORPH? NO; ADD SCAN? YES; FRAGMENT RBC FLAG 0 (0-99); HEMATOCRIT 30.5 % (38.0-47.0); HEMOGLOBIN 10.7 g/dL (12.6-16.3); LIPEMIA HEMOLYSIS FLAG 90 (0-99); MEAN CELL HEMOGLOBIN CONCENTR. 35.1 g/dL (32.4-36.7); MEAN CELL VOLUME 88.4 fL (81.5-99.8); MEAN PLATELET VOLUME 11.1 fL (8.7-11.7); PLATELET CLUMPS FLAG 0 (0-99); PLATELET COUNT 80 10^3/uL (150-400); RED BLOOD CELL COUNT 3.45 10^6/uL (4.18-5.33)
--- NOTE | 2016-09-19 05:39 | HOSPPROG ---
Hospitalist Progress Note Assessment/Plan: Called by RN to patient's bedside at 1:00 a.m. when the patient screen positive on the sepsis screen and was also experiencing worsening tachypnea, tachycardia. Assessment: 21-year-old female presents with severe sepsis in the setting of suspected urinary tract infection, possible pneumonia, worsening autonomic dysregulation at this time Plan: 1. Severe sepsis. Patient originally met criteria with tachycardia, tachypnea, leukocytosis, source of infection, evidence of end-organ failure notably lactic acidosis, hypotension with systolic blood pressures in the 60-70 range, indicating evidence of end-organ failure including coagulopathy. -her worsening tachycardia and tachypnea this evening could be evidence of worsening autonomic dysregulation or they may be indicative of a new development of acute reactive airway exacerbation -get serum lactic acid level now -follow-up CBC in a.m. as well as fever curve -holding additional IV fluids given that her chest x-ray demonstrates worsening infiltrates (personally interpreted), possibly volume overload -will administer IV albumin scheduled given her low serum albumin level and need to improve intravascular volume - echocardiogram demonstrating good left ventricular function but possibly impaired right ventricular function, monitor volume status closely -get flu PCR to rule out influenza 2. Acute reactive airway exacerbation. Evidenced by diffuse bronchial breath sounds with worsening tachypnea, tachycardia, oxygen requirement -chest x-ray demonstrating worsening infiltrates, potentially resulting in increased inflammatory response -give scheduled IV steroids, initiate scheduled duo nebs, continue on supplemental oxygen -if patient's respiratory status worsening, will order BiPAP and transfer to step-down unit I will discuss the above with Dr. Draper and signed out the situation to him in a.m.. Subjective: Patient with worsening shortness of breath overnight Objective: Vital Signs Temp Pulse Resp BP Pulse Ox 37.3 C 101 H 16 106/55 L 94 09/19/16 05:03 09/19/16 05:03 09/19/16 05:03 09/19/16 05:03 09/19/16 05:03 09/17/16 09/18/16 09/19/16 05:59 05:59 05:59 Intake Total 2050 Output Total 902 Balance 1148 PT 22.7 SEC (12.0-15.0) H 09/18/16 06:45 INR 1.99 (0.83-1.16) H 09/18/16 06:45 - Physical Exam Constitutional: no apparent distress ( mild distress), appears nourished, not in pain, No uncomfortable Cardiovascular: tachycardia, No systolic murmur, No irregularly irregular, No edema Respiratory: expiratory wheeze ( faint), inspiratory crackles ( mid posterior segment), bronchial breath sounds, respiratory distress ( visibly tachypneic) Gastrointestinal: normoactive bowel sounds, soft, non-tender abdomen, no palpable masses Neurologic: AAOx3, No weakness ( motor strength 5/5 bilateral lower extremities) Psychiatric: interacting appropriately, not anxious, not encephalopathic, thought process linear ICD10 Worksheet Patient Problems: Problems Problem Status Onset Community acquired pneumonia Acute Lactic acidosis Acute Leukocytosis Acute Severe sepsis Acute Thrombocytopenia Acute Urinary tract infection Acute
[2016-09-19 05:43] LABS: APTT 40.6 SEC (23.0-38.0); INR 1.43 (0.83-1.16); PROTIME(PATIENT) 17.4 SEC (12.0-15.0)
[2016-09-19 05:45] LABS: FIBRINOGEN 306 mg/dL (214-456)
[2016-09-19 05:55] LABS: PLATELET COUNT 80 10^3/uL (150-400)
[2016-09-19 05:58] LABS: ALANINE AMINOTRANSFERASE 42 IU/L (9-52); ALKALINE PHOSPHATASE 62 IU/L (38-126); ANION GAP 9 mEq/L (8-16); ASPARTATE AMINOTRANSFERASE 34 IU/L (14-46); BILIRUBIN,TOTAL 0.9 mg/dL (0.1-1.4); CALCIUM 7.8 mg/dL (8.5-10.4); CARBON DIOXIDE 20 mEq/l (22-31); CHLORIDE 109 mEq/L (97-110); CREATININE 0.8 mg/dL (0.6-1.0); GLOMERULAR FILTRATION RATE > 60; GLUCOSE 96 mg/dL (70-100); MAGNESIUM 1.5 mg/dL (1.6-2.3); POTASSIUM 3.6 mEq/L (3.5-5.2); SODIUM 138 mEq/L (134-144); TOTAL PROTEIN 5.1 g/dL (6.3-8.2)
[2016-09-19 06:00] LABS: ATYPICAL LYMPHOCYTE FLAG 250 (0-99); LEFT SHIFT FLG 230 (0-99)
[2016-09-19 06:20] LABS: SCAN POSITIVE
[2016-09-19 06:23] LABS: PLATELET ESTIMATE DECREASED (ADEQ)
[2016-09-19 06:25] LABS: TOXIC VACUOLIZATION PRESENT
[2016-09-19] MEDS ORDERED: POTASSIUM CL 10 MEQ TAB PO ONE (08:20)
[2016-09-19] MEDS ORDERED: MAGNESIUM SULF 1 GM/DEXTROSE 100 ML IV ONE (08:21)
[2016-09-19] MEDS ORDERED: CALCIUM GLUCONATE 50 ML IV ONE (08:21)
[2016-09-19] MEDS: AZITHROMYCIN IV 500 MG in D5W 250 ML IV SCH (11:37)
--- NOTE | 2016-09-19 11:53 | HOSPPROG ---
Hospitalist Progress Note Assessment/Plan: DIAGNOSES: # ACUTE SEPTIC SHOCK WITH ORGAN FAILURE, Resolved # COMMUNITY-ACQUIRED PNEUMONIA # ? URINARY TRACT INFECTION # ACUTE KIDNEY INJURY # PROBABLE DIC DUE TO ABOVE # HYPOKALEMIA AND HYPOMAGNESEMIA She is doing quite well in terms of resolution of sepsis and the complications of sepsis. However she certainly has at this time still a significant pneumonia. The respiratory viral panel is negative and blood culture so far also negative. She remains on empiric therapy with antibiotic. Her infiltrate is more significant today on films than yesterday, however think this is largely has to do with hydration issues and I do not know that her pneumonia is actually getting any worse. PLANS: continue Empiric antibiotics Follow cultures closely Follow hemodynamics closely Her parents are here from [place] now at the bedside. I have reviewed the patient's condition and progress in detail with him and answer questions. Total visit time today greater than 35 minutes at bedside SUBJECTIVE: no flank, abdominal, or bladder discomfort No cough shortness of breath chest discomfort or other respiratory symptoms No focal pain or discomfort OBJECTIVE Vitals reviewed: blood pressure is now good. Her pulse respirations were elevated a bit during the night but much better now. No fever Exam: alert oriented skin warm dry color ok, no bleeding or bruising resps not labored lungs clear BSs heart regular abd soft nondistended nontender, bowel sounds present, no flank tenderness limbs warm, no edema iv site ok Laboratory data: creatinine on now on normal at 0.8, white blood cell count now back in normal range Culture data: No growth in cultures so far Respiratory viral testing reveals no organism repeat chest x-ray today with more notable bilateral pulmonary infiltrates Objective: Vital Signs Temp Pulse Resp BP Pulse Ox 36.8 C 66 18 116/62 100 09/19/16 08:06 09/19/16 11:33 09/19/16 11:33 09/19/16 08:06 09/19/16 11:33 Laboratory Results 09/19/16 04:30 09/19/16 04:30 09/18/16 09/19/16 09/20/16 06:59 06:59 06:59 Intake Total 2049 Output Total 902 1600 Balance 1148 -1600 PT 17.4 SEC (12.0-15.0) H 09/19/16 04:30 INR 1.43 (0.83-1.16) H 09/19/16 04:30 ICD10 Worksheet Patient Problems: Problems Problem Status Onset Community acquired pneumonia Acute Lactic acidosis Acute Leukocytosis Acute Severe sepsis Acute Thrombocytopenia Acute Urinary tract infection Acute
[2016-09-19] MEDS ORDERED: methylPREDNISolone SOD SUCC 125 MG/2 ML VIAL IVP SCH (14:00)
[2016-09-19] MEDS: predniSONE 20 MG TAB PO SCH (18:32)
[2016-09-19] MEDS: NORETHINDRONE 0.35 MG PO SCH ×2 (20:27→22:35)
--- NOTE | 2016-09-20 00:45 | HOSPPROG ---
Hospitalist Progress Note Assessment/Plan: cross cover note: Was asked to evaluate the patient by her nurse due to shortness of breath and abdominal distention. Patient tells me that her breathing is getting better. Her abdomen feels bloated. She is passing a small amount of gas. She denies any significant abdominal pain. Her last bowel movement was earlier today. Objective: Breathing comfortably lungs are clear to auscultation bilaterally abdomen is mildly distended with normoactive bowel sounds no guarding or rebound tenderness assessment/plan: Abdominal bloating - recommend ambulation and continued monitoring for constipation or ileus Objective: Vital Signs Temp Pulse Resp BP Pulse Ox 36.7 C 80 28 H 121/74 H 96 09/19/16 19:37 09/20/16 00:00 09/20/16 00:00 09/20/16 00:00 09/20/16 00:00 Laboratory Results 09/19/16 04:30 09/19/16 04:30 09/18/16 09/19/16 09/20/16 05:59 05:59 05:59 Intake Total 2050 1350 Output Total 902 4200 Balance 1148 -2850 PT 17.4 SEC (12.0-15.0) H 09/19/16 04:30 INR 1.43 (0.83-1.16) H 09/19/16 04:30 ICD10 Worksheet Patient Problems: Problems Problem Status Onset Severe sepsis Acute Community acquired pneumonia Acute Lactic acidosis Acute Thrombocytopenia Acute Urinary tract infection Acute Leukocytosis Acute
[2016-09-20] MEDS: oxyCODONE IR 5 MG TAB PO PRN (01:28)
[2016-09-20] MEDS: ALBUMIN 25% 100 ML IV SCH ×5 (01:29→23:15)
[2016-09-20 05:48] LABS: % IMMATURE GRANULYOCYTES 1.5 % (0.0-1.1); ABSOLUTE IMMATURE GRANULOCYTES 0.21 10^3/uL (0.00-0.10); ADD DIFF? NO; ADD MORPH? NO; ADD SCAN? YES; FRAGMENT RBC FLAG 0 (0-99); HEMATOCRIT 30.8 % (38.0-47.0); HEMOGLOBIN 10.6 g/dL (12.6-16.3); LIPEMIA HEMOLYSIS FLAG 90 (0-99); MEAN CELL HEMOGLOBIN 30.1 pg (27.9-34.1); MEAN CELL HEMOGLOBIN CONCENTR. 34.4 g/dL (32.4-36.7); MEAN CELL VOLUME 87.5 fL (81.5-99.8); MEAN PLATELET VOLUME 11.1 fL (8.7-11.7); PLATELET CLUMPS FLAG 0 (0-99); PLATELET COUNT 112 10^3/uL (150-400); RED BLOOD CELL COUNT 3.52 10^6/uL (4.18-5.33); RED CELL DISTRIBUTION WIDTH 13.3 % (11.5-15.2)
[2016-09-20 05:49] LABS: ATYPICAL LYMPHOCYTE FLAG 300 (0-99); LEFT SHIFT FLG 170 (0-99)
[2016-09-20 06:07] LABS: SCAN POSITIVE
[2016-09-20 06:09] LABS: ANION GAP 15 mEq/L (8-16); CALCIUM 8.8 mg/dL (8.5-10.4); CARBON DIOXIDE 23 mEq/l (22-31); CHLORIDE 106 mEq/L (97-110); CREATININE 0.6 mg/dL (0.6-1.0); GLOMERULAR FILTRATION RATE > 60; GLUCOSE 140 mg/dL (70-100); POTASSIUM 3.9 mEq/L (3.5-5.2); SODIUM 144 mEq/L (134-144)
[2016-09-20 06:12] LABS: PLATELET ESTIMATE DECREASED (ADEQ)
[2016-09-20] MEDS: IPRATROPIUM/ALBUTEROL 3 ML DEYVIAL IH SCH ×4 (06:28→21:32)
[2016-09-20] MEDS: ONDANSETRON 4 MG/2 ML VIAL IVP PRN (07:34)
--- NOTE | 2016-09-20 08:49 | CPEKG ---
Heart Rate: 109 RR Interval: 550 P-R Interval: 156 QRSD Interval: 76 QT Interval: 312 QTC Interval: 421 P Jesse: 46 QRS Jesse: -7 T Wave Jesse: 26 EKG Severity - BORDERLINE ECG - EKG Impression: SINUS TACHYCARDIA EKG Impression: LOW VOLTAGE THROUGHOUT Electronically Signed By: Naren Stone 20-Sep-2016 14:37:17
[2016-09-20] MEDS: predniSONE 20 MG TAB PO SCH ×2 (09:14→18:37)
[2016-09-20] MEDS: AZITHROMYCIN IV 500 MG in D5W 250 ML IV SCH (09:14)
[2016-09-20] MEDS ORDERED: FUROSEMIDE 20 MG/2 ML VIAL IVP ONE ×2 (12:59→17:00)
--- NOTE | 2016-09-20 13:58 | SOAPPROG ---
SOAP Progress Note Assessment/Plan: Assessment/plan: * Respiratory failure-increasing oxygen requirements -wean as tolerated * Diffuse lung infiltrates-query fluid overload versus diffuse atypical pneumonia. -will obtain a high-resolution CT scan of the chest -recheck echocardiogram -agree with diuresis * Urinary tract infection * Sepsis-resolved * Abnormal echo-right ventricular dilatation Subjective: Breathless in the form of exertion. Cough is productive of a blood-tinged sputum. There is no fever Objective: Vital Signs Temp Pulse Resp BP Pulse Ox 36.6 C 90 18 129/86 H 94 09/20/16 11:58 09/20/16 11:58 09/20/16 11:58 09/20/16 11:58 09/20/16 11:58 Laboratory Results 09/20/16 04:15 09/20/16 04:15 09/19/16 09/20/16 09/21/16 05:59 05:59 05:59 Intake Total 2050 1750 Output Total 902 5700 1900 Balance 1148 -3950 -1900 PT 17.4 SEC (12.0-15.0) H 09/19/16 04:30 INR 1.43 (0.83-1.16) H 09/19/16 04:30 Physical Exam - Physical Exam General Appearance: alert, no apparent distress EENT: PERRL/EOMI, normal ENT inspection, pharynx normal, TMs normal Neck: non-tender, full range of motion, supple, normal inspection Respiratory: crackles (Diffuse in all lung potter), No respiratory distress, No stridor, No wheezing Cardiac/Chest: normal peripheral pulses, regular rate, rhythm Peripheral Pulses: 2+: carotid (R), carotid (L), femoral (R), femoral (L), dorsalis-pedis (R), dorsalis-pedis (L) Abdomen: normal bowel sounds, non-tender, soft Pelvic Exam: deferred Rectal: deferred Skin: normal color, warm/dry Extremities: normal range of motion, non-tender, normal inspection, normal capillary refill ICD10 Worksheet Patient Problems: Problems Problem Status Onset Community acquired pneumonia Acute Lactic acidosis Acute Leukocytosis Acute Severe sepsis Acute Thrombocytopenia Acute Urinary tract infection Acute
[2016-09-20] MEDS: ACETAMINOPHEN 325 MG TAB PO PRN (15:03)
--- NOTE | 2016-09-20 17:32 | HOSPPROG ---
Hospitalist Progress Note Assessment/Plan: DIAGNOSES: # ACUTE SEPTIC SHOCK WITH ORGAN FAILURE, Resolved # ACUTE HYPOXEMIC RESP FAILURE # COMMUNITY-ACQUIRED PNEUMONIA AND OR PULMONARY EDEMA (?DUE TO ARDS AND FLUID RESUSCITATION) # PYURIA / ? URINARY TRACT INFECTION # ACUTE KIDNEY INJURY resolved # PROBABLE DIC DUE TO ABOVE # HYPOKALEMIA AND HYPOMAGNESEMIA Hard to determine if her worsening CXR and hypoxemia are due to fluid from resuscitation and ? ARDS or to a pneumonia not responding to antibiotics. I believe she will improve with diuresis at this time and have ordered lasix. I have asked Drs Trisha and to evaluate her however to help determine that there is not anything else we should be doing to manage infection. PLANS: Lasix diuresis continue Empiric antibiotics repeat CXR tomorrow repeat DIC labs and cbc tomorrow Follow cultures closely Follow hemodynamics closely Her parents are here from [place] now at the bedside. I have reviewed the patient's condition and progress in detail with him and answer questions. Total visit time today greater than 35 minutes at bedside SUBJECTIVE: no less sob today, and in fact using a bit more O2 OBJECTIVE Vitals reviewed: blood pressure remains good. Otherwise stable No fever Exam: alert oriented skin warm dry color ok, no bleeding or bruising resps not labored but still needing O2 at 4 L lungs a few rales today heart regular abd soft perhaps minimally distended nontender, bowel sounds present, no flank tenderness limbs warm, trace edema iv site ok Culture data: No growth in cultures so far Respiratory viral testing reveals no organism repeat chest x-ray today with more increase in airspace density diffusely with a pattern suggesting possibly edema Objective: Vital Signs Temp Pulse Resp BP Pulse Ox 36.6 C 87 22 H 129/86 H 94 09/20/16 11:58 09/20/16 14:22 09/20/16 14:22 09/20/16 11:58 09/20/16 14:22 Laboratory Results 09/20/16 04:15 09/20/16 04:15 09/19/16 09/20/16 09/21/16 06:59 06:59 06:59 Intake Total 2050 1750 Output Total 902 5700 2700 Balance 1148 -3950 -2700 PT 17.4 SEC (12.0-15.0) H 09/19/16 04:30 INR 1.43 (0.83-1.16) H 09/19/16 04:30 - Time Spent With Patient Time Spent with Patient: greater than 35 minutes Time Spent with Patient: Greater than 35 minutes spent on this patients care, greater than 50% of time spent counseling, educating, and coordinating care regarding the above mentioned plan. ICD10 Worksheet Patient Problems: Problems Problem Status Onset Community acquired pneumonia Acute Lactic acidosis Acute Leukocytosis Acute Severe sepsis Acute Thrombocytopenia Acute Urinary tract infection Acute
[2016-09-20] MEDS: NORETHINDRONE 0.35 MG PO SCH (20:36)
--- NOTE | 2016-09-20 21:11 | GCON ---
[f rep st] CONSULTATION INFECTIOUS DISEASE CONSULTATION DATE OF CONSULTATION: 09/20/2016 REFERRING PHYSICIAN: Edmar Draper MD REASON FOR CONSULTATION: Septic shock of unclear etiology with possible pneumonia. HISTORY OF PRESENT ILLNESS: Patient is a 21-year-old female without significant past medical histor y who describes developing onset of rigors, malaise and cervical lymphadenopathy approximately 4 day s prior to presentation. She did not have a thermometer to check her temperature but did describe h aving subjective fevers. These symptoms progressed to the point that when she tried to get up she w as extremely dizzy prompting evaluation in the emergency department. She did not have significant m yalgias or arthralgias. She did prior to onset of symptoms have some mild dysuria without urgency o r frequency. She did not have sore throat prior to presentation but has had some sore throat since hospitalization. No cough or respiratory symptoms were present prior to admission. She did have na usea and vomiting prior to presentation. The patient is on [employer] team and does not note any i ll teammates currently. She did travel to [place] and the [facility] for [employer] games . No large dust storms when there. Upon presentation to the hospital, she was noted to have a leuk ocytosis with prominent bandemia as well as an elevated lactic acid at 3.0 with coagulopathy with fi ndings suggestive of DIC and rare schistocytes on initial blood smear but not confirmed on subsequen t blood smears. She also had acute renal failure which resolved with IV rehydration. There were mi ld liver enzyme abnormalities at time of presentation. The patient subsequently had hypotension req uiring transfer to the intensive care unit with blood pressure support in the form of vasopressors. Initially, there was concern there might be a right middle lobe infiltrate and the patient was star ryan on treatment for community-acquired pneumonia with ceftriaxone and azithromycin. CT scan at the time of presentation did not show evidence of infiltrate. Blood cultures obtained at the time of p resentation have been no growth. A respiratory pathogen panel by PCR was negative. Urine culture h as shown 2 colony types as well as low numbers of MSSA. The patient now has developed hypoxia with increasing shortness of breath and bilateral diffuse pulmonary infiltrates. There is a pet Maryl la at home which has not been ill. She has not cleaned out any out buildings or ann marie or had exposu re to rodent droppings. She traveled to the [facility] for study abroad last semester and returned in April. She has visited her parents in [facility]. Review of today's blood smear also not es atypical lymphocytes being present. She has not demonstrated fever during her hospital stay. Gi refugio the above findings, I am now asked to assist in the patient's ongoing management to evaluate for potential etiology of patient's septic shock and current pulmonary infiltrates. PAST MEDICAL HISTORY: Unremarkable. PAST SURGICAL HISTORY: Unremarkable. CURRENT MEDICATIONS: Ceftriaxone 1 g IV daily, azithromycin 500 mg IV daily, oral contraceptives da camila, prednisone 40 mg p.o. b.i.d., DuoNeb q.6 hours. ALLERGIES: Penicillin associated with rash. SOCIAL HISTORY: Patient does not smoke. She binge drinks on the weekend. No drug use. She is a s tudent at and plays lacrosse. Travel history as outlined above. No recent sexual activity or ne w sexual partners. FAMILY HISTORY: Noncontributory to presentation. REVIEW OF SYSTEMS: Outside that noted in HPI, remainder of 10 system review is unremarkable. PHYSICAL EXAMINATION: VITAL SIGNS: Temperature 36.6, heart rate 87, respiratory rate 22, blood pre ssure 129/86, oxygen saturation 94% on 4 L. GENERAL: Patient is a thin female in no acute distress . She appears nontoxic. HEENT: There is no scleral icterus, conjunctival injection, or conjunctiv al petechiae. The oropharynx shows moist mucous membranes with dentition being in good repair. No thrush is present. There is tonsillar hypertrophy on the right side without exudate. There is no s inus tenderness. There is no nasal discharge. NECK: Supple without lymphadenopathy or palpable th yromegaly. CHEST: There are bibasilar crackles present. The respiratory effort is mildly increase d. CARDIOVASCULAR: Regular rate and rhythm without murmurs, gallops, or rubs. ABDOMEN: Soft, non tender, nondistended. There is no palpable organomegaly. Bowel sounds are present. MUSCULOSKELETA L: There is no cyanosis, clubbing, or edema. SKIN: No rashes are noted. The skin is warm and dry to touch. There are no stigmata of endocarditis. LYMPHATICS: No cervical or supraclavicular node s palpable. There are shotty bilateral inguinal nodes. NEUROLOGIC: Patient is alert and interacts appropriately with the examiner. Cranial nerves 2-12 are grossly intact. Sensation is grossly int act. Muscle tone and bulk are normal. LABORATORY DATA: White blood cell count 14.1, hematocrit 30.8, platelets 112 (miguel at 70), neutrop hils 53%, bands 35%, 2+ atypical lymphocytes present. Serum creatinine 0.6, AST 34, ALT 42, bilirub in 0.9, alkaline phosphatase 62, albumin 3.0. Coagulation studies are reviewed with findings from y showing INR 1.4, PTT 40.6, fibrinogen 306. Urinalysis shows 15-25 white blood cells, 5-10 red blood cells, trace epithelial cells and trace bacteria. Venous lactate yesterday is 1.2. Influ mark testing by PCR is negative, respiratory pathogen panel by PCR is negative, Monospot is negative . HIV antibody is negative, mycoplasma antibodies are pending, urine Legionella antigen has been ord ered. Chest x-ray shows bilateral pulmonary infiltrates. Repeat chest CT scan is reviewed with Rad iology today with bilateral infiltrates most suggestive of volume although pneumonia cannot be ruled out. Echocardiogram at time of presentation showed normal ejection fraction with mildly dilated ri ght ventricle. Abdomen and pelvis ultrasound shows no evidence of hydronephrosis or hepatosplenomeg judie. IMPRESSION: 1. Septic shock with disseminated intravascular coagulation of unclear etiology. Clinically improv ed with resolution of shock and improved coagulopathy. Overall syndrome is most compatible with vir al etiology although severity of illness is atypical. She does have atypical lymphocytes present on her CBC which also could be compatible with viral etiologies such as EBV, CMV, or adenovirus. Harshad ovirus can be associated with pneumonitis as well. However, adenovirus was not noted on initial res piratory PCR specimen. Methicillin-susceptible Staphylococcal aureus in the urine raises concern fo r possible secondary seeding from Staph aureus bacteremia although I suspect with her low colony cou nt this represents skin gary rather than secondary seeding. Community-acquired pneumonia with diff use pulmonary infiltrates remains possible as does viral pneumonia. Zoonotic pathogen seem less lik akbar although tularemia can be associated with outdoor activities in our region. Traveled to [place] but suspect coccidioidomycosis would be of low likelihood. Given the severity of illness, Legio zoë is also of consideration as are other atypical pathogens. Hantavirus can be associated with c oagulopathy and diffuse pulmonary infiltrates although patient has no discrete exposures. Additiona lly, hemoconcentration is often present which is not found currently. 2. Bilateral pulmonary infiltrates: Clinical appearance and course more compatible with volume ove rload although pneumonia still remains possible. See above discussion for further details. RECOMMENDATIONS: 1. Agree with continued ceftriaxone and azithromycin. 2. Agree with checking urine Legionella antigen. 3. Will repeat respiratory pathogen panel as yield can be affected by sample error. 4. Check EBV and CMV serologies. 5. Await repeat echocardiogram. 6. Follow clinical response to above measures. Thank you for this consultation. We will continue to follow patient with you. /[id number]/MODL
[2016-09-21] MEDS: IPRATROPIUM/ALBUTEROL 3 ML DEYVIAL IH SCH (04:47)
[2016-09-21] MEDS: ALBUMIN 25% 100 ML IV SCH ×4 (05:02→23:31)
[2016-09-21 05:25] LABS: PLATELET COUNT 156 10^3/uL (150-400)
[2016-09-21 05:26] LABS: ADD DIFF? YES; ADD MORPH? NO; FRAGMENT RBC FLAG 0 (0-99); HEMATOCRIT 31.7 % (38.0-47.0); HEMOGLOBIN 10.8 g/dL (12.6-16.3); LEFT SHIFT FLG 70 (0-99); LIPEMIA HEMOLYSIS FLAG 90 (0-99); MEAN CELL HEMOGLOBIN 30.4 pg (27.9-34.1); MEAN CELL HEMOGLOBIN CONCENTR. 34.1 g/dL (32.4-36.7); MEAN CELL VOLUME 89.3 fL (81.5-99.8); MEAN PLATELET VOLUME 10.7 fL (8.7-11.7); PLATELET CLUMPS FLAG 0 (0-99); PLATELET COUNT 149 10^3/uL (150-400); RED BLOOD CELL COUNT 3.55 10^6/uL (4.18-5.33); RED CELL DISTRIBUTION WIDTH 13.3 % (11.5-15.2)
[2016-09-21 05:32] LABS: INR 1.26 (0.83-1.16); PROTIME(PATIENT) 15.8 SEC (12.0-15.0)
[2016-09-21 05:33] LABS: APTT 34.3 SEC (23.0-38.0)
[2016-09-21 05:34] LABS: FIBRINOGEN 262 mg/dL (214-456)
[2016-09-21 05:42] LABS: ADD SCAN? NO; ATYPICAL LYMPHOCYTE FLAG 280 (0-99)
[2016-09-21 06:14] LABS: PLATELET ESTIMATE DECREASED (ADEQ)
[2016-09-21 08:06] LABS: ANION GAP 16 mEq/L (8-16); CALCIUM 9.7 mg/dL (8.5-10.4); CARBON DIOXIDE 28 mEq/l (22-31); CHLORIDE 100 mEq/L (97-110); CREATININE 0.6 mg/dL (0.6-1.0); GLOMERULAR FILTRATION RATE > 60; GLUCOSE 93 mg/dL (70-100); MAGNESIUM 2.2 mg/dL (1.6-2.3); POTASSIUM 3.8 mEq/L (3.5-5.2); SODIUM 144 mEq/L (134-144)
[2016-09-21] MEDS: predniSONE 20 MG TAB PO SCH (08:16)
[2016-09-21] MEDS: AZITHROMYCIN IV 500 MG in D5W 250 ML IV SCH (08:16)
[2016-09-21] MEDS ORDERED: FUROSEMIDE 20 MG/2 ML VIAL IVP ONE (09:25)
--- NOTE | 2016-09-21 09:58 | HOSPPROG ---
Hospitalist Progress Note Assessment/Plan: # acute hypoxic resp failure - d/t pulm infiltrates # bilat pulm infiltrates - ddx: pneumonia/pneumonitis vs edema vs ARDS - lasix again today, repeat CXR tomorrow - empiric abx coverage - viral studies/legionella/mycoplasma sent - reduce steroids # septic shock - off pressors - cont azith/rocephin # DIC - resolving # staph a in urine # mild RV dilation, reduced function Subjective: breathing feels about the same Objective: Vital Signs Temp Pulse Resp BP Pulse Ox 36.6 C 93 18 124/79 H 94 09/21/16 08:00 09/21/16 08:00 09/21/16 08:00 09/21/16 08:00 09/21/16 08:00 Laboratory Results 09/21/16 04:38 09/21/16 07:42 09/20/16 09/21/16 09/22/16 05:59 05:59 05:59 Intake Total 1750 2055 Output Total 5700 5900 Balance -3950 -3845 PT 15.8 SEC (12.0-15.0) H 09/21/16 04:38 INR 1.26 (0.83-1.16) H 09/21/16 04:38 chart reviewed CXR personally reviewed - Physical Exam Constitutional: no apparent distress, appears nourished Cardiovascular: regular rate and rhythym, no murmur, rub, or gallop Respiratory: no respiratory distress, inspiratory crackles, No expiratory wheeze , No bronchial breath sounds Gastrointestinal: normoactive bowel sounds, soft, non-tender abdomen, no palpable masses ICD10 Worksheet Patient Problems: Problems Problem Status Onset Severe sepsis Acute Community acquired pneumonia Acute Lactic acidosis Acute Thrombocytopenia Acute Urinary tract infection Acute Leukocytosis Acute
--- NOTE | 2016-09-21 13:40 | SOAPPROG ---
SOAP Progress Note Assessment/Plan: Assessment/plan: * Respiratory failure-oxygen requirements have improved -continue to wean * Diffuse lung infiltrates-CT scan suggests fluid overload rather than atypical pneumonia -will more aggressively diurese patient -await results of ECHO * Urinary tract infection * Sepsis-resolved * Abnormal echo-right ventricular dilatation Subjective: Sitting up in bed. Feels markedly better, with less breathlessness. Her cough has diminished. Objective: Vital Signs Temp Pulse Resp BP Pulse Ox 36.7 C 83 20 121/87 H 95 09/21/16 12:00 09/21/16 12:00 09/21/16 12:00 09/21/16 12:00 09/21/16 12:00 Microbiology 09/21/16 07:42 Respiratory Panel (PCR) - Final Nasal, Sinus - Swab No Organism Detected Laboratory Results 09/21/16 04:38 09/21/16 07:42 09/20/16 09/21/16 09/22/16 05:59 05:59 05:59 Intake Total 1750 2055 305 Output Total 5700 5900 1100 Balance -3950 -3845 -795 PT 15.8 SEC (12.0-15.0) H 09/21/16 04:38 INR 1.26 (0.83-1.16) H 09/21/16 04:38 High-resolution CT scan of the chest-suggest fluid overload with bilateral pleural effusions. Physical Exam - Physical Exam General Appearance: WD/WN, alert, no apparent distress EENT: PERRL/EOMI, normal ENT inspection, pharynx normal, TMs normal Neck: non-tender, full range of motion, supple, normal inspection Respiratory: decreased breath sounds, crackles (Few basilar) Cardiac/Chest: normal peripheral pulses, regular rate, rhythm Peripheral Pulses: 2+: carotid (R), carotid (L), femoral (R), femoral (L), dorsalis-pedis (R), dorsalis-pedis (L) Abdomen: normal bowel sounds, non-tender, soft Pelvic Exam: deferred Rectal: deferred Skin: normal color, warm/dry Extremities: normal range of motion, non-tender, normal inspection, normal capillary refill Neuro/Psych: no motor/sensory deficits, alert, normal mood/affect, oriented x 3 ICD10 Worksheet Patient Problems: Problems Problem Status Onset Community acquired pneumonia Acute Lactic acidosis Acute Leukocytosis Acute Severe sepsis Acute Thrombocytopenia Acute Urinary tract infection Acute
--- NOTE | 2016-09-21 14:22 | ECHO ---
[id number] + + [address] : : [place] [address] : : [phone] + + Adult Echocardiographic Report + ----+ :Name: STEPHEN CASTANEDA Tabitha CStudy Date: 09/21/2016 12:24 PM : : Hospital Admission Number: [id number] Location: 145: :: 1995 Gender: Female Height: 64 in : :Age: 21 yrs Race: WH Weight: 114 lb : :Reason For Study: pulm edema : : BSA: 1.5 meters2 : :History: pulm edema : + ----+ MMode/2D Measurements \T\ Calculations IVSd: 0.63 cm RVDd: 3.7 cm FS: 36.1 % Ao root diam: LVPWd: 0.79 cm LVIDd: 4.7 cm EDV(Teich): 2.3 cm LVIDs: 3.0 cm 104.4 ml ESV(Teich): 35.9 ml EF(Teich): 65.7 % LVLd ap4: 8.1 cm SV(MOD-sp4): EDV(MOD-sp4): 73.0 ml 113.0 ml LVLs ap4: 7.2 cm ESV(MOD-sp4): 40.0 ml EF(MOD-sp4): 64.6 % Normal Measurement Values: + + :LVIDd (3.5-5.7cm) IVSd (0.6-1.1cm) LVPWd (0.6-1.1cm) Aortic Root (2.0-3.7cm)Left Atrium (1.5-4.0cm): :LV Vol(d) (76-115ml) LV Vol(s) (29-48ml) Ejec Fraction (50-65%)PV Jarad (0.6- 1.2m/s) TV Jarad (0.4-1.0m/s) : :MV E Jarad (0.8-1.0m/s)MV A Jarad (0.3-1.0m/s)LVOT Jarad (0.7-1.2m/s) Asc Ao Jarad ( 0.9-1.8m/s) : + + Doppler Measurements \T\ Calculations MV E max jarad: Ao V2 max: LV V1 max: PA V2 max: 92.8 cm/sec 123.0 cm/sec 97.7 cm/sec 88.1 cm/sec MV A max jarad: Ao max P.1 mmHgLV V1 max PG: PA max P.4 cm/sec 3.8 mmHg 3.1 mmHg MV E/A: 2.0 MV dec time: 0.12 sec TR max jarad: 304.0 cm/sec TR max P.0 mmHg RAP systole: 10.0 mmHg RVSP(TR): 47.0 mmHg Left Ventricle The left ventricle is normal in size and function. There is normal left ventricular wall thickness. Ejection Fraction = 65%. No regional wall motion abnormalities noted. Right Ventricle The right ventricle is borderline dilated. The right ventricular systolic function is normal. Atria The left atrial size is normal. Right atrial size is normal. A dilated inferior vena cava suggests increased right atrial pressure. Injection of contrast documented no interatrial shunt. Mitral Valve The mitral valve is normal in structure and function. There is no mitral valve stenosis. There is mild to moderate mitral regurgitation. Tricuspid Valve The tricuspid valve is normal in structure and function. There is no tricuspid stenosis. There is mild tricuspid regurgitation. Right ventricular systolic pressure is 47mmHg. There is Doppler evidence for moderate pulmonary hypertension. Aortic Valve The aortic valve is trileaflet. There is no aortic stenosis. Trace aortic regurgitation. Pulmonic Valve The pulmonic valve is normal in structure and function. Mild pulmonic valvular regurgitation. Great Vessels The aortic root is normal size. Pericardium/Pleural Small pericardial effusion. Conclusion A two-dimensional transthoracic echocardiogram with M-mode and Doppler was performed. Contrast injection was performed. The left ventricle is normal in size and function. Ejection Fraction = 65%. Normal LV wall motion RV borderline dilated with normal systolic function Injection of contrast documented no interatrial shunt. There is mild to moderate mitral regurgitation. There is mild tricuspid regurgitation. Right ventricular systolic pressure is 47mmHg. There is Doppler evidence for moderate pulmonary hypertension. Trace aortic regurgitation. Mild pulmonic valvular regurgitation. Small pericardial effusion. No tamponade Compared with 09/18/2016, PHTN now present. Small pericardial effusion now present Final Reading Physician: Dr Harleen Castro electronically signed on 09/21/2016 02:20 PM Ordering Physician: Evangelista Ambrocio Performed By: Roseline Moreno
[2016-09-21] MEDS: FUROSEMIDE 40 MG/4 ML VIAL IVP SCH (15:18)
[2016-09-21 17:46] LABS: C-REACTIVE PROTEIN 57.8 mg/L (<10.0)
[2016-09-21] MEDS: oxyCODONE IR 5 MG TAB PO PRN (17:59)
[2016-09-21 18:59] LABS: SEDIMENTATION RATE 7 MM/HR (0-20)
--- NOTE | 2016-09-21 19:56 | PCMIDPN ---
Assessment/Plan: Assessment/Plan: * Septic shock, now resolved, with associated DIC and pulmonary infiltrates: Cultures have remained negative and serologic studies have been unrevealing to date. Overall patient is improving clinically. CT yesterday more suggestive of volume overload rather than pneumonitis although remains consideration. With atypical lymphocytes, consideration for EBV and CMV is present which at times can cause severe illness although septic shock and DIC would be unusual. Repeat respiratory virus pathogen panel was negative. Will continue ceftriaxone and azithromycin pending Legionella antigen. See initial consultation for additional diagnostic considerations. Continue ongoing supportive care. Echo findings reviewed with Dr. Castro. * Headache: Suspect associated with overall illness. Neck is supple without meningismus. Patient notes headache is not as severe as prior migraines. Head CT without contrast shows no acute findings. 09/21/16 19:53 Subjective: Patient complains of headache this afternoon after walking around and initially feeling dizzy. Notes headache is less severe than prior migraine. Breathing feels easier today. Objective: Vital Signs Temp Pulse Resp BP Pulse Ox 36.7 C 73 18 114/78 96 09/21/16 16:00 09/21/16 16:00 09/21/16 16:00 09/21/16 16:00 09/21/16 16:00 Microbiology 09/21/16 07:42 Respiratory Panel (PCR) - Final Nasal, Sinus - Swab No Organism Detected Laboratory Results 09/21/16 04:38 09/21/16 07:42 09/20/16 09/21/16 09/22/16 05:59 05:59 05:59 Intake Total 1750 2055 2310 Output Total 5700 5900 2200 Balance -3950 -3845 110 ESR 7 MM/HR (0-20) 09/21/16 04:38 C-Reactive Protein 57.8 mg/L (<10.0) H 09/21/16 07:42 Ceftriaxone # 5 Azithromycin # 5 Respiratory virus pathogen PCR negative EBV/CMV antibody pending Urine Legionella antigen pending Chest x-ray with stable diffuse infiltrates Rheumatoid factor negative, MAURICIO pending - Physical Exam General Appearance: alert, no apparent distress, non-toxic EENT: No scleral icterus, No thrush, No conjunctival petechiae Respiratory: lungs clear, No respiratory distress Neck: supple, No meningismus Cardiac/Chest: regular rate, rhythm, No systolic murmur Extremities: No inflammation Abdomen: non-tender, No distended Skin: No embolic lesions Neuro/Psych: No confused ICD10 Worksheet Patient Problems: Problems Problem Status Onset Community acquired pneumonia Acute Lactic acidosis Acute Leukocytosis Acute Severe sepsis Acute Thrombocytopenia Acute Urinary tract infection Acute
[2016-09-21] MEDS: NORETHINDRONE 0.35 MG PO SCH (23:32)
[2016-09-22 05:20] VITALS: RESP 16
[2016-09-22 05:33] LABS: ALANINE AMINOTRANSFERASE 102 IU/L (9-52); ALBUMIN 5.1 g/dL (3.5-5.0); ALKALINE PHOSPHATASE 62 IU/L (38-126); ANION GAP 17 mEq/L (8-16); ASPARTATE AMINOTRANSFERASE 68 IU/L (14-46); BILIRUBIN,TOTAL 1.1 mg/dL (0.1-1.4); CALCIUM 9.5 mg/dL (8.5-10.4); CARBON DIOXIDE 29 mEq/l (22-31); CHLORIDE 98 mEq/L (97-110); CREATININE 0.7 mg/dL (0.6-1.0); GLOMERULAR FILTRATION RATE > 60; GLUCOSE 85 mg/dL (70-100); POTASSIUM 3.2 mEq/L (3.5-5.2); SODIUM 144 mEq/L (134-144); TOTAL PROTEIN 7.8 g/dL (6.3-8.2)
[2016-09-22 05:37] LABS: ABSOLUTE NRBC COUNT 0.02 10^3/uL (0-0.01); ADD DIFF? YES; ADD MORPH? NO; FRAGMENT RBC FLAG 0 (0-99); HEMATOCRIT 34.8 % (38.0-47.0); HEMOGLOBIN 11.6 g/dL (12.6-16.3); LEFT SHIFT FLG 40 (0-99); LIPEMIA HEMOLYSIS FLAG 80 (0-99); MEAN CELL HEMOGLOBIN 29.6 pg (27.9-34.1); MEAN CELL HEMOGLOBIN CONCENTR. 33.3 g/dL (32.4-36.7); MEAN CELL VOLUME 88.8 fL (81.5-99.8); NRBC-AUTO% 0.2 % (0.0-0.2); PLATELET CLUMPS FLAG 0 (0-99); PLATELET COUNT 172 10^3/uL (150-400); RED BLOOD CELL COUNT 3.92 10^6/uL (4.18-5.33); RED CELL DISTRIBUTION WIDTH 13.1 % (11.5-15.2)
[2016-09-22 05:42] LABS: ADD SCAN? NO; ATYPICAL LYMPHOCYTE FLAG 180 (0-99)
[2016-09-22] MEDS: ALBUMIN 25% 100 ML IV SCH (05:55)
[2016-09-22 06:24] LABS: PLATELET ESTIMATE ADEQUATE (ADEQ)
[2016-09-22] MEDS ORDERED: AZITHROMYCIN 250 MG TAB PO SCH (09:00)
[2016-09-22] MEDS ORDERED: predniSONE 20 MG TAB PO SCH (09:00)
[2016-09-22] MEDS: FUROSEMIDE 40 MG/4 ML VIAL IVP SCH (09:29)
--- NOTE | 2016-09-22 09:32 | SOAPPROG ---
SOAP Progress Note Assessment/Plan: Assessment/plan: * Respiratory failure-oxygen requirements have improved -continue to wean * Diffuse lung infiltrates-mycoplasma IgM positive. -continue azithromycin. Okay to discontinue Rocephin. -taper steroids over the next 5 days * Urinary tract infection * Sepsis-resolved * Disposition-okay to be discharged home on oxygen from a pulmonary standpoint. She will follow up in my office in approximately 1 week. Subjective: Feels better this morning. Still on oxygen though. Objective: Vital Signs Temp Pulse Resp BP Pulse Ox 36.5 C 67 16 101/61 93 09/22/16 04:00 09/22/16 04:00 09/22/16 04:00 09/22/16 04:00 09/22/16 04:00 Microbiology 09/21/16 07:42 Respiratory Panel (PCR) - Final Nasal, Sinus - Swab No Organism Detected Laboratory Results 09/22/16 05:07 09/22/16 05:07 09/21/16 09/22/16 09/23/16 05:59 05:59 05:59 Intake Total 2055 3310 200 Output Total 5900 3300 Balance -3845 10 200 PT 15.8 SEC (12.0-15.0) H 09/21/16 04:38 INR 1.26 (0.83-1.16) H 09/21/16 04:38 Laboratory Results 09/22/16 05:07 09/22/16 05:07 09/22/16 09/21/16 09/20/16 05:07 07:42 04:15 Calcium 9.5 mg/dL mg/dL (8.5 - 10.4) Total Bilirubin 1.1 mg/dL mg/dL (0.1 - 1.4) AST 68 IU/L H IU/L (14 - 46) ALT 102 IU/L H IU/L (9 - 52) Alkaline Phosphatase 62 IU/L IU/L (38 - 126) C-Reactive Protein 57.8 mg/L H mg/L (0 - 10.0) Total Protein 7.8 g/dL g/dL (6.3 - 8.2) Albumin 5.1 g/dL H g/dL (3.5 - 5.0) Mycoplasma pneumon IgG 2.53 index index Mycoplasma pneumon IgM 1.90 index H index Physical Exam - Physical Exam General Appearance: alert, no apparent distress EENT: PERRL/EOMI, normal ENT inspection Neck: non-tender, full range of motion, supple Respiratory: crackles (Few), other (Improved air movement), No respiratory distress, No stridor, No wheezing Cardiac/Chest: normal peripheral pulses, regular rate, rhythm Abdomen: normal bowel sounds, non-tender, soft Pelvic Exam: deferred Rectal: deferred Skin: normal color, warm/dry Extremities: normal range of motion, non-tender, normal inspection, normal capillary refill Neuro/Psych: no motor/sensory deficits, alert, normal mood/affect, oriented x 3 ICD10 Worksheet Patient Problems: Problems Problem Status Onset Community acquired pneumonia Acute Lactic acidosis Acute Leukocytosis Acute Severe sepsis Acute Thrombocytopenia Acute Urinary tract infection Acute
--- NOTE | 2016-09-22 09:47 | PCMIDPN ---
Assessment/Plan: Assessment: hypotension with infiltrates/pulmonary edema with brief mild febrile event prior to admission. Treating empirically with both ceftriaxone and azithromycin. Atypical lymphocytes noted on smear. Positive mycoplasma antibodies (IgM) which may be indicative of the pathogen, however neither respiratory PCR panel showed the presence of m. pneumonia. The imaging also seems more c/w fluid overload/edema rather than infiltrate. EBV and CMV remain a consideration and serologies are pending but this would also be odd to cause such profound hypotension without ongoing pyrexia in a healthy 21 yo. Adrenal crisis is a consideration as the hypotension can be more profound in such a situation and her recovery has coincided with the use of prednisone (for pneumonitis). Would allow her to discharge today given her clinical improvement and arrange to have her f/u with Dr. Rico. Discussed concerns with him. As she tapers off her steroid, she will monitor for return of dizziness symptoms and have Dr. Rico work up for possible adrenal insufficiency at that time if that situation occurs. Plan: 1) Discontinue ceftriaxone. 2) Continue Azithromycin for a total of 10 days. 3) Follow symptoms going forward as an outpatient. If symptoms return, see above discussion. 4) Follow up on pending laboratory results. Subjective: Patient feels much better. Wants to go home. No fevers. Breathing well. Objective: Ceftriaxone Azithromycin Vital Signs Temp Pulse Resp BP Pulse Ox 36.5 C 67 16 101/61 93 09/22/16 04:00 09/22/16 04:00 09/22/16 04:00 09/22/16 04:00 09/22/16 04:00 Microbiology 09/21/16 07:42 Respiratory Panel (PCR) - Final Nasal, Sinus - Swab No Organism Detected Laboratory Results 09/22/16 05:07 09/22/16 05:07 09/21/16 09/22/16 09/23/16 05:59 05:59 05:59 Intake Total 2055 3310 200 Output Total 5900 3300 Balance -3845 10 200 ESR 7 MM/HR (0-20) 09/21/16 04:38 C-Reactive Protein 57.8 mg/L (<10.0) H 09/21/16 07:42 - Physical Exam General Appearance: WD/WN, alert, no apparent distress, non-toxic Respiratory: lungs clear, normal breath sounds, No respiratory distress Cardiac/Chest: regular rate, rhythm, No tachycardia Extremities: non-tender, normal inspection Skin: normal color, warm/dry, No rash Neuro/Psych: alert, normal mood/affect, oriented x 3 ICD10 Worksheet Patient Problems: Problems Problem Status Onset Community acquired pneumonia Acute Lactic acidosis Acute Leukocytosis Acute Severe sepsis Acute Thrombocytopenia Acute Urinary tract infection Acute
[2016-09-22 09:54] VITALS: BP 110/70; PULSE 83; TEMP 98.1; O2SAT 92
[2016-09-22] MEDS ORDERED: POTASSIUM CL 20 MEQ TAB PO ONE (10:23)
[2016-09-22 12:13] LABS: ANTINUCLEAR ANTIBODIES SCREEN 1.19 UNITS (<=1.00)
--- NOTE | 2016-09-22 12:56 | GDS ---
[f rep st] DISCHARGE SUMMARY ALL DIAGNOSES: 1. Shock, suspected septic. 2. Bilateral pulmonary infiltrates. 3. Acute hypoxic respiratory failure. 4. DIC. 5. Mild RV dilation with reduced function. 6. Fpof-up-gqgiluge mitral regurgitation. 7. Elevated right-sided pressures with a right ventricular systolic pressure of 45. HOSPITAL COURSE: This is a 21-year-old female who presented with somewhat mild complaints of fever and weakness. She quickly decompensated, requiring pressors overnight. Her initial chest x-ray and C T scan were clear; however, she developed florid bilateral pulmonary infiltrates. She was placed on empiric Rocephin and azithromycin covering for pneumonia, also placed on steroids. Workup has been s omewhat unclear. She does have a positive mycoplasma IgM. She had 2 negative influenzas, negative HI V, 2 negative respiratory viral panels. Her CMV and EBV serologies are pending at the time of discha rge. She also has an MAURICIO that is pending at the time of discharge. She had Staph aureus in her urine , which is felt to be not a true pathogen. She has been seen by infectious disease as well as pulmon ology. On the day of discharge, she was ambulating in the cleaning, keeping her oxygen sats at 88% or above wit hout oxygen. Will plan to discharge her on additional 4 days of azithromycin for a total of 10 days. She will follow up with Dr. Rico in his office. She is aware that there is a possibility this rep resents addisonian crisis and will taper off prednisone. I have given her extras to increase her pre dnisone dosing should she need it. I will also give her Dr. Harleen Castro's name of Cardiology to pam beck up with for her tmvb-xw-fmxnuuqu mitral regurgitation and elevated right-sided pressures. I think she will need a followup echocardiogram in a few months. BILLING: I spent more than 30 minutes on the day of discharge coordinating care. /[id number]/MODL
[2016-09-22 13:49] LABS: ANTI EBNA Negative (Negative); ANTI VCA/IgG Negative (Negative); ANTI VCA/IgM Positive (Negative)
== END 2016-09-22 11:04 | disposition home or self-care (01) | DRG 871 ==
LOC: INTOOBSV 17:50 → F3E 18:38 → F2N 09-18 01:56 → OBSVTOIN 09-18 07:43 → F1N 09-18 17:02
PROVIDERS: ADMIT Internal Medicine; ATTEND Internal Medicine
DX: A41.9 Sepsis, unspecified organism (principal); R65.21 Severe sepsis with septic shock; J18.8 Other pneumonia, unspecified organism; J96.01 Acute respiratory failure with hypoxia; I34.0 Nonrheumatic mitral (valve) insufficiency; Z88.0 Allergy status to penicillin; N17.9 Acute kidney failure, unspecified; N39.0 Urinary tract infection, site not specified; E83.51 Hypocalcemia; E83.42 Hypomagnesemia
CPT/HCPCS: 82947-QW; 86644-90; 86645-90; 86664-90; 86665-90; 86738-90; 87449-90; 96374; G0378; J0456; J0610; J0696; J1200; J1265; J2370; J2405; J3475; P9041; P9047; Q9967

== ENCOUNTER → 2016-09-29 | Outpatient (CLI) | payer BC | LOC: FIMAGING 11:39 | PROVIDERS: ATTEND Internal Medicine Infectious Disease | DX: J18.9 Pneumonia, unspecified organism (principal); B27.90 Infectious mononucleosis, unspecified without complication ==

== ENCOUNTER 2017-02-18 08:25 | Emergency (ER) | payer BC ==
[2017-02-18] MEDS ORDERED: NS 1,000 ML IV ONE ×2 (08:47→09:57)
[2017-02-18] MEDS ORDERED: ONDANSETRON 4 MG/2 ML VIAL IVP ONE (08:47)
[2017-02-18] MEDS ORDERED: KETOROLAC 30 MG/1 ML SDV IVP ONE (08:52)
[2017-02-18 08:53] LABS: % IMMATURE GRANULYOCYTES 0.5 % (0.0-1.1); ABSOLUTE IMMATURE GRANULOCYTES 0.08 10^3/uL (0.00-0.10); ADD DIFF? NO; ADD MORPH? NO; ADD SCAN? NO; ATYPICAL LYMPHOCYTE FLAG 0 (0-99); FRAGMENT RBC FLAG 0 (0-99); HEMATOCRIT 45.5 % (38.0-47.0); HEMOGLOBIN 15.3 g/dL (12.6-16.3); LEFT SHIFT FLG 0 (0-99); LIPEMIA HEMOLYSIS FLAG 80 (0-99); MEAN CELL HEMOGLOBIN 29.9 pg (27.9-34.1); MEAN CELL HEMOGLOBIN CONCENTR. 33.6 g/dL (32.4-36.7); MEAN CELL VOLUME 88.9 fL (81.5-99.8); MEAN PLATELET VOLUME 9.3 fL (8.7-11.7); PLATELET CLUMPS FLAG 10 (0-99); PLATELET COUNT 247 10^3/uL (150-400); RED BLOOD CELL COUNT 5.12 10^6/uL (4.18-5.33); RED CELL DISTRIBUTION WIDTH 12.5 % (11.5-15.2)
--- NOTE | 2017-02-18 08:57 | EDPHY ---
H & P Stated Complaint: nausea, SOB, chills, back pain Source: Patient, Family, Old records Exam Limitations: No limitations - Personal History LMP (Females 10-55): 1-7 Days Ago Current Tetanus Diphtheria and Acellular Pertussis (TDAP): Yes - Medical/Surgical History Hx Asthma: No Hx Chronic Respiratory Disease: No Hx Diabetes: No Hx Cardiac Disease: No Hx Renal Disease: No Hx Cirrhosis: No Hx Alcoholism: No Hx HIV/AIDS: No Hx Splenectomy or Spleen Trauma: No Other PMH: Pneumonia, Sepsis - Social History Smoking Status: Never smoked Time Seen by Provider: 02/18/17 08:53 HPI/ROS: HPI: This is a 22-year-old female who presents with Chief Complaint: Flu-like symptoms Location: Body Quality: Aches Duration: 2 days Signs and Symptoms: No cough, no fever, + chills, no neck stiffness, no dysuria , no abdominal pain, + nausea, no vomiting, no chest pain, no shortness of breath, no sore throat, + lower back pain Timing: Sudden, worsening Severity: Moderate Context: Patient complains today of flu-like symptoms that she describes as sudden onset 2 days ago of chills, body aches, fatigue. She reports approximately 1 week ago she had a cold with nasal congestion/sinus pressure but improved over several days without any ebgr-npm-dfasqry medications taken. She has been resting over the last few days; decreased appetite; trying to drink fluids. No sick contacts. LMP: 1 week ago. She also complains of mild bilateral lower back pain without radiation/weakness/incontinence. Modifying Factors: Has not tried any hmwj-enu-mrdvtov medication Comment: ROS: see HPI Constitutional: No fever, + chills, no weight loss Eyes: No blurred vision Respiratory: No shortness of breath, no cough Cardiovascular: No chest pain Gastrointestinal: + nausea, no vomiting, no diarrhea Genitourinary: No dysuria Extremities: No myalgias Neurologic: No weakness, no numbness Skin: No rashes Hematologic: No bruising, no bleeding MEDICAL/SURGICAL/SOCIAL HISTORY: Medical history: Admitted in September of this year with sepsis secondary to pneumonia. Surgical history: Denies Social history: Strong social support. CONSTITUTIONAL: Young adult white female, ill-appearing but nontoxic appearance , awake and alert, no obvious distress HEENT: Atraumatic and normocephalic, PERRL, EOMI. Tympanic membranes clear. Oropharynx clear, no exudate and moist pink mucosa. Airway patent. No lymphadenopathy. No meningismus. Cardiovascular: Normal S1/S2, tachycardia, regular rhythm, without murmur rub or gallop. PULMONARY/CHEST: Symmetrical and nontender. Clear to auscultation bilaterally. Good air movement. No accessory muscle usage. ABDOMEN: Soft, nondistended, nontender, no rebound, no guarding, no peritoneal signs, no masses or organomegaly. No CVAT. EXTREMITIES: 2/2 pulses, no deformities, no clubbing, no cyanosis or edema. NEUROLOGICAL: no focal neuro deficits. GCS 15. SKIN: Warm and dry, no erythema. no rash. Good capillary refill. (Michelle Monterroso) Constitutional: Initial Vital Signs Temperature (C) 36.9 C 02/18/17 08:28 Heart Rate 110 H 02/18/17 08:28 Respiratory Rate 20 02/18/17 08:28 Blood Pressure 135/103 H 02/18/17 08:28 O2 Sat (%) 97 02/18/17 08:28 O2 Delivery Mode Room Air Allergies/Adverse Reactions: Penicillins Allergy (Mild, Verified 02/18/17 08:32) Rash Home Medications: Medication Instructions Recorded Bcp 02/18/17 Nitrofurantoin Monohyd/M-Cryst 100 mg PO BID #14 capsule 02/18/17 [Macrobid 100 mg Capsule] Medical Decision Making ED Course/Re-evaluation: Labs, mono, urinalysis, influenza, IV fluids, IV medications ordered Afebrile. mild tachycardia noted; suspect hypovolemia. Will give 2 L normal saline along with IV Zofran and IV Toradol 30 mg. 0956: Leukocytosis noted/ mononucleosis negative/ negative/no acute kidney injury, electrolyte imbalance, anemia 1028: Influenza a and B negative. Awaiting urine sample for analysis. 1120: Urinalysis shows WBC, blood, elderly; sent for urine culture; allergy to penicillin; Macrobid given No signs of sepsis/pyelonephritis 1130: Re-evaluated patient and she states she she feels much improved. Repeat vital signs obtained and show improvement as well. Advised supportive care (Michelle Monterroso) Differential Diagnosis: Adult fever including but not limited to viral syndromes including influenza, urinary tract infection, pneumonia and sepsis. (Michelle Monterroso) Other Provider: The patient was evaluated and managed by the Physician Director Outcomes. My co- signature indicates that I have reviewed this chart and I agree with the findings and plan of care as documented. I am the secondary supervising physician. (Kami Pierce) - Data Points Laboratory Results: Laboratory Results 02/18/17 08:40 02/18/17 08:40 Microbiology Results: MICROBIOLOGY 02/18/17 10:30 Urine,Clean Catch Urine Culture - Preliminary Staphylococcus Aureus [place] Types Medications Given: Discontinued Medications Sodium Chloride (Ns) 1,000 mls @ 0 mls/hr IV EDNOW ONE; Wide Open PRN Reason: Protocol Stop: 02/18/17 08:48 Last Admin: 02/18/17 08:53 Dose: 1,000 mls Sodium Chloride (Ns) 1,000 mls @ 0 mls/hr IV EDNOW ONE; Wide Open PRN Reason: Protocol Stop: 02/18/17 09:58 Last Admin: 02/18/17 10:45 Dose: 1,000 mls Ketorolac Tromethamine (Toradol) 30 mg IVP EDNOW ONE Stop: 02/18/17 08:53 Last Admin: 02/18/17 08:59 Dose: 30 mg Nitrofurantoin Macrocrystals (Macrobid) 100 mg PO EDNOW ONE PRN Reason: Protocol Stop: 02/18/17 11:23 Last Admin: 02/18/17 11:28 Dose: 100 mg Ondansetron HCl (Zofran) 4 mg IVP EDNOW ONE Stop: 02/18/17 08:48 Last Admin: 02/18/17 08:59 Dose: 4 mg Departure - Departure Disposition: Home, Routine, Self-Care Clinical Impression: Viral syndrome, Lower urinary tract infection Condition: Good Instructions: Urinary Tract Infection in Women (ED), Viral Syndrome (ED) Additional Instructions: Please take all antibiotics as directed. Encourage fluid intake to prevent dehydration. Take Tylenol and/or ibuprofen as needed for pain, headache, fever. Rest as much as possible until feeling better. Avoid sexual intercourse until urinary tract infection has been treated. If symptoms are worsening or persist over the next 2-3 days, please follow-up with primary care provider for re-evaluation. Referrals: [facility],. [Clinic] - As per Instructions Prescriptions: Nitrofurantoin Monohyd/M-Cryst [Macrobid 100 mg Capsule] 100 mg PO BID #14 capsule
[2017-02-18 09:08] LABS: ANION GAP 15 mEq/L (8-16); CALCIUM 9.4 mg/dL (8.5-10.4); CARBON DIOXIDE 23 mEq/l (22-31); CHLORIDE 101 mEq/L (97-110); CREATININE 0.9 mg/dL (0.6-1.0); GLOMERULAR FILTRATION RATE > 60; GLUCOSE 98 mg/dL (70-100); POTASSIUM 4.1 mEq/L (3.5-5.2); SODIUM 139 mEq/L (134-144)
[2017-02-18 09:22] LABS: MONO TEST NEGATIVE (NEGATIVE)
[2017-02-18 09:23] LABS: BHCG-QUALITATIVE NEGATIVE
[2017-02-18 10:44] LABS: COLOR YELLOW; LEUKOCYTE ESTERASE,URINE 1+ (NEGATIVE); NITRITE,URINE NEGATIVE (NEGATIVE)
[2017-02-18 10:47] VITALS: RESP 16
[2017-02-18 10:51] LABS: MUCUS TRACE /lpf (NONE-1+)
[2017-02-18] MEDS ORDERED: NITROFURANTOIN MACROBID 100 MG CAP PO ONE (11:22)
[2017-02-18 12:15] VITALS: BP 121/74; PULSE 75; TEMP 97.9; O2SAT 97
== END 2017-02-18 12:13 | disposition home or self-care (01) ==
PROC: 3E0337Z Introduction of Electrolytic and Water Balance Substance into Peripheral Vein, Percutaneous Approach (ICD-10-PCS; principal; 2017-02-18)
DX: N39.0 Urinary tract infection, site not specified (principal); B34.9 Viral infection, unspecified; E86.9 Volume depletion, unspecified
CPT/HCPCS: 96374; J1885; J2405